=== PATIENT | male | born 1980 | race Caucasian/White ===

== ENCOUNTER 2023-04-07 19:15 | Emergency (ER) | payer MEDICARE, MEDICAID ==
[~2023-04-07] VITALS: Ht 175.3 cm; Wt 72.7 kg
[2023-04-08] MEDS ORDERED: ONDANSETRON HCL 4 MG/2 ML VIAL IM ONE (00:15)
[2023-04-08] MEDS ORDERED: MORPHINE SULFATE 4 MG/ML SYR/VIAL IM ONE (00:15)
[2023-04-08 00:39] VITALS: TEMP 98.1; O2SAT 99
[2023-04-08] MEDS ORDERED: ONDANSETRON ODT 4 MG TAB PO ONE (00:45)
[2023-04-08 01:09] VITALS: BP 128/78; PULSE 94; RESP 18
[2023-04-08] MEDS ORDERED: KETOROLAC TROMETH 30 MG/ML 1ML VIAL IM ONE (02:30)
== END 2023-04-08 03:57 | disposition home or self-care (01) ==
LOC: ER 19:15
DX: M25.511 Pain in right shoulder (principal); F17.210 Nicotine dependence, cigarettes, uncomplicated; W01.0XXA Fall on same level from slipping, tripping and stumbling without subsequent striking against object, initial encounter; Y93.89 Activity, other specified; Y92.89 Other specified places as the place of occurrence of the external cause; Y99.8 Other external cause status
CPT/HCPCS: 73030; 73060; 96372; 99284; J1885; J2270; Q0162

== ENCOUNTER 2023-12-07 15:51 | Inpatient (IN) | payer MEDICARE, MEDICAID ==
[~2023-12-07] VITALS: Ht 175.3 cm; Wt 85.4 kg
[2023-12-07 17:12] LABS: Eosinophils # (auto) 0.1 10 ^3/uL (0-0.8); Neutrophils # (auto) 6.2 10 ^3/uL (1.6-8.6); Nucleated Red Blood Cells % 0.1 %
[2023-12-07 17:14] LABS: Basophils # (auto) 0 10 ^3/uL (0-0.2); Basophils % (auto) 0.5 % (0.0-2.0); Eosinophils % (auto) 1.1 % (0.0-7.0); Hematocrit 32.9 % (41.0-53.0); Lymphocytes # (auto) 1.4 10 ^3/uL (0.4-5.4); Lymphocytes % (auto) 15.9 % (10.0-50.0); Mean Corpuscular Hemoglobin 20.7 pg (28.0-32.0); Mean Corpuscular Hgb Conc. 30.3 g/dL (32.0-36.0); Mean Corpuscular Volume 68.1 fL (80.0-100.0); Monocytes # (auto) 1.2 10 ^3/uL (0-1.3); Monocytes % (auto) 13.8 % (0.0-12.0); Neutrophils % (auto) 68.7 % (37.0-80.0); Platelet Count (auto) 407 10^3/uL (140-450); Red Blood Cells 4.84 10^6/uL (4.5-5.90)
[2023-12-07 17:20] LABS: Red Cell Distribution Width 20.9 % (11.8-14.3)
[2023-12-07 17:32] LABS: Alanine Aminotransferase 316 U/L (7-40); Albumin 3.9 g/dL (3.2-4.8); Alkaline Phosphatase 167 U/L (46-116); Anion Gap 6 (5-15); Aspartate Aminotransferase 244 U/L (13-40); BUN/Creatinine Ratio 14.4 (10.0-20.0); Bilirubin, Total 0.9 mg/dL (0.2-1.0); Blood Urea Nitrogen 17 mg/dL (9-23); Calcium 9.3 mg/dL (8.7-10.4); Carbon Dioxide 23 mmol/L (20-30); Chloride 108 mmol/L (98-107); Glucose 93 mg/dL (74-106); Potassium 4.4 mmol/L (3.5-5.1); Sodium 137 mmol/L (136-145); Total Protein 6.2 g/dL (5.7-8.2)
[2023-12-07] MEDS: ALBUTEROL SULF 2.5 MG/0.5ML(0.5%) NEB SOLN NEB ONE (18:45)
[2023-12-07] MEDS: ALBUTEROL SULF 2.5 MG/0.5ML(0.5%) NEB SOLN ONE (18:46)
[2023-12-07] MEDS: methylPREDNISolone SOD SUCC 125 MG/2 ML VL IV ONE (18:58)
[2023-12-07] MEDS: AZITHROMYCIN 250 MG TAB PO ONE (18:58)
[2023-12-07 19:00] VITALS: PULSE 101; RESP 22; O2SAT 93
[2023-12-07 19:14] VITALS: BP 139/84; PULSE 101; RESP 20; TEMP 97.6; O2SAT 98
[2023-12-07 19:30] VITALS: PULSE 110; RESP 20; O2SAT 98
[2023-12-07 20:23] LABS: Rapid Influenza A Negative (Negative); Rapid Influenza B Negative (Negative)
[2023-12-07 20:24] LABS: COVID19 ANTIGEN SOFIA FIA NEGATIVE (NEGATIVE)
[2023-12-07] MEDS ORDERED: FUROSEMIDE 40 MG/4 ML VIAL IV ONE (23:00)
[2023-12-07] MEDS ORDERED: NITROGLYCERIN 0.4 MG SL TAB SL PRN ×2 (23:00→23:15)
[2023-12-07] MEDS ORDERED: ONDANSETRON HCL 4 MG/2 ML VIAL IV PRN ×2 (23:00→23:15)
[2023-12-07] MEDS ORDERED: ACETAMINOPHEN 325 MG TAB PO PRN ×2 (23:00→23:15)
[2023-12-07] MEDS: FUROSEMIDE 40 MG/4 ML VIAL IV ONE (23:00)
[2023-12-07] MEDS ORDERED: MORPHINE SULFATE INJ 2 MG/ml SYRG IV PRN ×2 (23:00→23:15)
[2023-12-07 23:43] LABS: Triglycerides 81 mg/dL (< 150)
[2023-12-07 23:44] LABS: LDL Cholesterol 66 mg/dL (< 100)
[2023-12-07 23:45] LABS: Cholesterol 108 mg/dL (< 200); HDL Cholesterol 29 mg/dL (40-59)
[2023-12-08] VITALS (15 sets, daily range): BP systolic 116–126; BP diastolic 60–83; PULSE 50–112; RESP 17–23; TEMP 97.6–98.4; O2SAT 92–100
[2023-12-08] MEDS ORDERED: ACETAMINOPHEN 325 MG TAB PO PRN (01:30)
[2023-12-08] MEDS ORDERED: ONDANSETRON HCL 4 MG/2 ML VIAL IV PRN (01:30)
[2023-12-08] MEDS ORDERED: NITROGLYCERIN 0.4 MG SL TAB SL PRN (01:30)
[2023-12-08] MEDS ORDERED: MORPHINE SULFATE INJ 2 MG/ml SYRG IV PRN (01:30)
[2023-12-08 02:03] LABS: Amphetamine Screen, Urine Pos (NEGATIVE); Benzodiazephine Screen, Urine Neg (NEGATIVE)
[2023-12-08 02:04] LABS: Barbiturate Scree,Urine Neg (NEGATIVE); Cannabinoid Screen, Urine Pos (NEGATIVE); Cocaine Screen, Urine Neg (NEGATIVE); Opiate Scree,Urine Neg (NEGATIVE); Phencyclidine Screen, Urine Neg (NEGATIVE)
[2023-12-08 05:12] LABS: Calcium 9.4 mg/dL (8.7-10.4); Chloride 106 mmol/L (98-107); Potassium 4.9 mmol/L (3.5-5.1); Sodium 138 mmol/L (136-145)
[2023-12-08 05:13] LABS: Anion Gap 7 (5-15); Carbon Dioxide 25 mmol/L (20-30)
[2023-12-08 05:18] LABS: BUN/Creatinine Ratio 14.2 (10.0-20.0); Blood Urea Nitrogen 19 mg/dL (9-23); Glucose 173 mg/dL (74-106)
[2023-12-08] MEDS: FUROSEMIDE 20 MG/2 ML VIAL IV SCH (05:56)
[2023-12-08] MEDS ORDERED: FUROSEMIDE 20 MG/2 ML VIAL IV SCH (06:00)
[2023-12-08] MEDS: ALBUTEROL SULF 2.5 MG/0.5ML(0.5%) NEB SOLN NEB SCH ×2 (06:55→12:24)
[2023-12-08] MEDS: IPRATROPIUM BROM 0.5 MG/2.5ML INH SOL NEB SCH ×2 (06:55→12:24)
[2023-12-08] MEDS: IPRATROPIUM BROM 0.5 MG/2.5ML INH SOL ONE (06:56)
[2023-12-08] MEDS: ALBUTEROL SULF 2.5 MG/0.5ML(0.5%) NEB SOLN ONE (06:56)
[2023-12-08] MEDS ORDERED: ASPirin 81 mg TAB PO SCH (10:00)
[2023-12-08] MEDS: methylPREDNISolone SOD SUCC 40 MG/ML VL IV SCH (10:00)
[2023-12-08] MEDS: CARVEDILOL 3.125 MG TAB PO SCH (10:00)
[2023-12-08] MEDS ORDERED: CARVEDILOL 3.125 MG TAB PO SCH (10:00)
[2023-12-08] MEDS ORDERED: lamoTRIgine 25 MG TAB PO SCH (10:00)
[2023-12-08] MEDS ORDERED: QUET25TA37 PO (10:07)
[2023-12-08] MEDS: ASPirin 81 mg TAB PO SCH (10:41)
[2023-12-08] MEDS: AZITHROMYCIN 250 MG TAB PO SCH (10:42)
[2023-12-08] MEDS: lamoTRIgine 25 MG TAB PO SCH (10:42)
[2023-12-08] MEDS: AZITHROMYCIN 250 MG TAB PO ONE (10:42)
[2023-12-08] MEDS: methylPREDNISolone SOD SUCC 40 MG/ML VL IV ONE (10:51)
[2023-12-08] MEDS ORDERED: ATORVASTATIN 20 MG TAB PO SCH ×2 (22:00)
[2023-12-09] VITALS (13 sets, daily range): BP systolic 104–128; BP diastolic 58–104; PULSE 75–114; RESP 17–20; TEMP 97.3–98.6; O2SAT 95–99
[2023-12-09] MEDS: EMPAGLIFLOZIN 10 MG TAB PO SCH (09:30)
[2023-12-09] MEDS: SACUBITRIL-VALSARTAN 24mg/26mg TAB PO SCH (09:30)
[2023-12-10] VITALS (7 sets, daily range): BP systolic 98–118; BP diastolic 65–80; PULSE 73–95; RESP 16–20; TEMP 97.7–98.1; O2SAT 0–100
[2023-12-10 08:36] LABS: Hepatitis B Surface Antigen Negative (Negative)
[2023-12-10 08:57] LABS: Hepatitis A Ab IgM Negative; Hepatitis B Core IgM Negative
[2023-12-10 08:58] LABS: Hepatitis C Antibody Negative (Negative)
[2023-12-10] MEDS ORDERED: ALBUAER3 IN (10:29)
[2023-12-10] MEDS ORDERED: CARV-214 PO (10:29)
[2023-12-10] MEDS ORDERED: FURO1TAB31 PO (10:29)
[2023-12-10] MEDS ORDERED: SACU1TAB PO (10:29)
[2023-12-10] MEDS ORDERED: AZIT500T66 PO (10:29)
[2023-12-10] MEDS ORDERED: EMPA1TAB PO (10:29)
[2023-12-10] MEDS ORDERED: LAM100T PO (10:29)
[2023-12-10] MEDS ORDERED: METH4PAK PO (10:29)
== END 2023-12-10 11:40 | disposition home or self-care (01) | DRG 917 ==
LOC: ER 15:51 → TELE 22:57 → ER 23:00 → TELE 12-08 01:32 → TELE-WESTW 12-08 10:06
PROVIDERS: ADMIT Nurse Practitioner; ATTEND Family Medicine
DX: T43.621A Poisoning by amphetamines, accidental (unintentional), initial encounter (principal); I21.A1 Myocardial infarction type 2; I50.23 Acute on chronic systolic (congestive) heart failure; J18.9 Pneumonia, unspecified organism; J96.20 Acute and chronic respiratory failure, unspecified whether with hypoxia or hypercapnia; J44.1 Chronic obstructive pulmonary disease with (acute) exacerbation; N17.9 Acute kidney failure, unspecified; I42.0 Dilated cardiomyopathy; J44.0 Chronic obstructive pulmonary disease with (acute) lower respiratory infection; I42.7 Cardiomyopathy due to drug and external agent; F17.210 Nicotine dependence, cigarettes, uncomplicated; F31.9 Bipolar disorder, unspecified; I07.1 Rheumatic tricuspid insufficiency; F15.10 Other stimulant abuse, uncomplicated; R74.01 Elevation of levels of liver transaminase levels; T50.995A Adverse effect of other drugs, medicaments and biological substances, initial encounter; E03.9 Hypothyroidism, unspecified; Y92.89 Other specified places as the place of occurrence of the external cause
CPT/HCPCS: 36415; 71046; 80048; 80053; 80061; 80074; 80307; 83036; 83880; 84443; 84484; 85025; 85379; 87426; 87804; 93005; 93306; 94640; 96374; 96375; G0378

== ENCOUNTER 2024-02-13 12:21 | Inpatient (IN) | payer MEDICARE, MEDICAID ==
[~2024-02-13] VITALS: Ht 175.3 cm; Wt 88.0 kg
[~2024-02-13 12:21] MED LIST: ALBUAER3 IN; AZIT500T66 PO; CARV-214 PO; CLON0.5T4 PO; EMPA1TAB PO; FURO1TAB31 PO; LAM100T PO; METH4PAK PO; QUET200T30 PO; QUET25TA37 PO; QUET400T PO; SACU1TAB PO
[2024-02-13 13:00] LABS: Basophils # (auto) 0.1 10 ^3/uL (0-0.2); Basophils % (auto) 0.5 % (0.0-2.0); Eosinophils # (auto) 0.1 10 ^3/uL (0-0.8)
[2024-02-13 13:01] LABS: Eosinophils % (auto) 0.6 % (0.0-7.0); Hematocrit 34.3 % (41.0-53.0); Hemoglobin 10.6 g/dL (13.5-17.5); Lymphocytes % (auto) 8.6 % (10.0-50.0); Mean Corpuscular Hemoglobin 21.7 pg (28.0-32.0); Mean Corpuscular Hgb Conc. 30.7 g/dL (32.0-36.0); Mean Corpuscular Volume 70.7 fL (80.0-100.0); Monocytes # (auto) 1.1 10 ^3/uL (0-1.3); Monocytes % (auto) 8.9 % (0.0-12.0); Neutrophils # (auto) 9.8 10 ^3/uL (1.6-8.6); Neutrophils % (auto) 81.4 % (37.0-80.0); Nucleated Red Blood Cells % 0.1 %; Platelet Count (auto) 408 10^3/uL (140-450); Red Blood Cells 4.86 10^6/uL (4.5-5.90); Red Cell Distribution Width 23.1 % (11.8-14.3)
[2024-02-13] MEDS: AZITHROMYCIN 500MG/ 250ML 250 ML IV ONE (13:15)
[2024-02-13] MEDS: cefTRIAXone 1GM/50ML D5W 50 ML IV ONE (13:15)
[2024-02-13] MEDS: FUROSEMIDE 40 MG/4 ML VIAL IV ONE (13:15)
[2024-02-13 13:25] LABS: Alanine Aminotransferase 491 U/L (7-40); Albumin 4.3 g/dL (3.2-4.8); Alkaline Phosphatase 140 U/L (46-116); Anion Gap 8 (5-15); Aspartate Aminotransferase 136 U/L (13-40); BUN/Creatinine Ratio 18.5 (10.0-20.0); Bilirubin, Total 1.9 mg/dL (0.2-1.0); Blood Urea Nitrogen 20 mg/dL (9-23); Calcium 9.8 mg/dL (8.7-10.4); Carbon Dioxide 23 mmol/L (20-31); Chloride 106 mmol/L (98-107); Glucose 98 mg/dL (74-106); Potassium 5.5 mmol/L (3.5-5.1); Sodium 137 mmol/L (136-145); Total Protein 6.4 g/dL (5.7-8.2)
[2024-02-13 14:25] VITALS: PULSE 117; RESP 28; O2SAT 96
[2024-02-13] MEDS ORDERED: ONDANSETRON HCL 4 MG/2 ML VIAL IV PRN (14:30)
[2024-02-13] MEDS: ENOXAPARIN SOD 40 MG/0.4 ML SYRINGE SC SCH (14:30)
[2024-02-13] MEDS ORDERED: MORPHINE SULFATE INJ 2 MG/ml SYRG IV PRN (14:30)
[2024-02-13] MEDS ORDERED: DOCUSATE SOD 100 MG CAP PO PRN (14:30)
[2024-02-13] MEDS: SODIUM ZIRCONIUM CYCL 10 GM PAK PO ONE (14:30)
[2024-02-13] MEDS: ENOXAPARIN SOD 80 MG/0.8ML SYRINGE SC ONE (14:37)
[2024-02-13] MEDS: MAGNESIUM SULFATE 1GM/100ML 100 ML IV SCH (15:18)
[2024-02-13] MEDS: methylPREDNISolone SOD SUCC 125 MG/2 ML VL IV ONE (15:18)
[2024-02-13] MEDS: ALBUTEROL SULF 2.5 MG/0.5ML(0.5%) NEB SOLN ONE (15:24)
[2024-02-13] MEDS: LORazepam 2MG/ML-1ML VIAL IV ONE (15:24)
[2024-02-13] MEDS: SODIUM BICARB 8.4% 50Meq/50ml SYR INJ IV ONE (15:24)
[2024-02-13] MEDS: CALCIUM GLUC 1,000mg/50ml-NS 50 ML IV ONE (15:24)
[2024-02-13] MEDS: BUDESONIDE (INHALATION) 0.5 MG/2 ML NEB ONE (15:25)
[2024-02-13] MEDS: IPRATROPIUM BROM 0.5 MG/2.5ML INH SOL ONE (15:25)
[2024-02-13] MEDS: ALBUTEROL SULF 2.5 MG/0.5ML(0.5%) NEB SOLN NEB ONE (15:30)
[2024-02-13] MEDS ORDERED: ALBUTEROL SULF 2.5 MG/0.5ML(0.5%) NEB SOLN NEB ONE (15:30)
[2024-02-13] MEDS: BUDESONIDE (INHALATION) 0.5 MG/2 ML NEB NEB ONE (15:30)
[2024-02-13] MEDS: IPRATROPIUM BROM 0.5 MG/2.5ML INH SOL NEB ONE (15:30)
[2024-02-13 15:32] LABS: Base Excess -10.7 mmol/L (-2.0-3.0)
[2024-02-13] MEDS: FUROSEMIDE 20 MG/2 ML VIAL IV ONE (15:49)
[2024-02-13] MEDS: ETOMIDATE (2MG/ML) 20ML VIAL IV ONE (16:06)
[2024-02-13] MEDS: ROCURONIUM 10MG/ML 10ML VIAL IV ONE (16:06)
[2024-02-13] MEDS: MIDAZOLAM DRIP 50 mg/50mL 0 ML IV ONE (16:06)
[2024-02-13 17:20] LABS: Base Excess -4.8 mmol/L (-2.0-3.0)
[2024-02-13 17:32] LABS: INR 1.21 (0.9-1.15); Prothrombin Time 12.6 sec (9.3-11.8)
[2024-02-13] MEDS: FUROSEMIDE 40 MG/4 ML VIAL IV SCH (18:00)
[2024-02-13] MEDS ORDERED: NITROGLYCERIN 0.4 MG SL TAB SL PRN (19:00)
[2024-02-13 19:22] VITALS: PULSE 111; RESP 23; O2SAT 93
[2024-02-13] MEDS: methylPREDNISolone SOD SUCC 125 MG/2 ML VL IV SCH (21:55)
[2024-02-13] MEDS: SACUBITRIL-VALSARTAN 24mg/26mg TAB PO SCH (21:56)
[2024-02-13] MEDS: CARVEDILOL 3.125 MG TAB PO SCH (21:56)
[2024-02-13] MEDS: ENOXAPARIN SOD 100 MG/1 ML SYRINGE SC SCH (21:57)
[2024-02-13 22:57] VITALS: PULSE 112
[2024-02-14] VITALS (8 sets, daily range): BP systolic 107–133; BP diastolic 56–77; PULSE 51–104; RESP 18–21; TEMP 97.5–98.6; O2SAT 92–100
[2024-02-14] MEDS ORDERED: QUET200T45 PO (00:54)
[2024-02-14 05:46] LABS: Basophils # (auto) 0 10 ^3/uL (0-0.2); Eosinophils # (auto) 0 10 ^3/uL (0-0.8); Hemoglobin 11.2 g/dL (13.5-17.5); Monocytes # (auto) 0.2 10 ^3/uL (0-1.3); Monocytes % (auto) 2.1 % (0.0-12.0)
[2024-02-14 05:49] LABS: Hematocrit 36.6 % (41.0-53.0); Lymphocytes # (auto) 0.4 10 ^3/uL (0.4-5.4); Lymphocytes % (auto) 3.8 % (10.0-50.0); Mean Corpuscular Hemoglobin 21.5 pg (28.0-32.0); Mean Corpuscular Hgb Conc. 30.5 g/dL (32.0-36.0); Mean Corpuscular Volume 70.5 fL (80.0-100.0); Neutrophils # (auto) 10.2 10 ^3/uL (1.6-8.6); Neutrophils % (auto) 94.1 % (37.0-80.0); Platelet Count (auto) 363 10^3/uL (140-450); Red Cell Distribution Width 23.6 % (11.8-14.3); White Blood Cell 10.8 10^3/uL (4.4-10.8)
[2024-02-14 06:11] LABS: Alanine Aminotransferase 513 U/L (7-40); Albumin 4.3 g/dL (3.2-4.8); Alkaline Phosphatase 169 U/L (46-116); Anion Gap 10 (5-15); Aspartate Aminotransferase 204 U/L (13-40); BUN/Creatinine Ratio 20.2 (10.0-20.0); Bilirubin, Total 1.1 mg/dL (0.2-1.0); Blood Urea Nitrogen 24 mg/dL (9-23); Calcium 9.8 mg/dL (8.7-10.4); Carbon Dioxide 25 mmol/L (20-31); Chloride 104 mmol/L (98-107); Glucose 130 mg/dL (74-106); Potassium 4.3 mmol/L (3.5-5.1); Sodium 139 mmol/L (136-145); Total Protein 6.8 g/dL (5.7-8.2)
[2024-02-14] MEDS: QUEtiapine FUMARATE 25 MG TAB PO SCH (08:37)
[2024-02-14] MEDS: lamoTRIgine 100 MG TAB PO SCH (08:38)
[2024-02-14] MEDS: EMPAGLIFLOZIN 10 MG TAB PO SCH (08:40)
[2024-02-14] MEDS: cefTRIAXone 1GM/50ML D5W 50 ML IV SCH (08:48)
[2024-02-14] MEDS: methylPREDNISolone SOD SUCC 125 MG/2 ML VL IV SCH (09:00)
[2024-02-14] MEDS: AZITHROMYCIN 500MG/ 250ML 250 ML IV SCH (09:32)
[2024-02-14 14:31] LABS: Urine Bacteria None Seen /hpf (None Seen)
[2024-02-14 14:41] LABS: Urine Blood Negative /uL (Negative); Urine Clarity Clear (Clear); Urine Color Light-Yellow (Yellow); Urine Protein, UAD Negative (Negative); Urine Specific Gravity 1.028 (1.001-1.035); Urine Urobilinogen Normal (Negative); Urine WBC <1 /hpf (0 - 3); Urine pH 5.5 (5.0-9.0)
[2024-02-14 14:50] LABS: Amphetamine Screen, Urine Pos (NEGATIVE); Barbiturate Scree,Urine Neg (NEGATIVE); Benzodiazephine Screen, Urine Neg (NEGATIVE); Cannabinoid Screen, Urine Pos (NEGATIVE); Cocaine Screen, Urine Neg (NEGATIVE); Opiate Scree,Urine Neg (NEGATIVE); Phencyclidine Screen, Urine Neg (NEGATIVE)
[2024-02-14] MEDS: IOHEXOL 350 MG/ML 100ML IJ ONE (16:10)
[2024-02-14] MEDS ORDERED: IPRATROPIUM BROM 0.5 MG/2.5ML INH SOL NEB PRN (16:15)
[2024-02-14] MEDS ORDERED: ALBUTEROL SULF 2.5 MG/0.5ML(0.5%) NEB SOLN NEB PRN (16:15)
[2024-02-15] VITALS (8 sets, daily range): BP systolic 112–120; BP diastolic 60–78; PULSE 52–103; RESP 16–21; TEMP 97.5–98.6; O2SAT 95–99
[2024-02-15] MEDS: LORazepam 0.5 MG TAB PO PRN
[2024-02-15 07:20] LABS: Basophils # (auto) 0.1 10 ^3/uL (0-0.2); Eosinophils # (auto) 0 10 ^3/uL (0-0.8); Hematocrit 39.1 % (41.0-53.0); Hemoglobin 11.7 g/dL (13.5-17.5); Lymphocytes # (auto) 0.5 10 ^3/uL (0.4-5.4)
[2024-02-15 07:22] LABS: Basophils % (auto) 0.3 % (0.0-2.0); Lymphocytes % (auto) 2.1 % (10.0-50.0); Mean Corpuscular Hemoglobin 21.3 pg (28.0-32.0); Mean Corpuscular Hgb Conc. 29.9 g/dL (32.0-36.0); Mean Corpuscular Volume 71.1 fL (80.0-100.0); Monocytes # (auto) 0.9 10 ^3/uL (0-1.3); Monocytes % (auto) 3.7 % (0.0-12.0); Neutrophils # (auto) 23.4 10 ^3/uL (1.6-8.6); Neutrophils % (auto) 93.9 % (37.0-80.0); Platelet Count (auto) 456 10^3/uL (140-450); Red Cell Distribution Width 23.9 % (11.8-14.3)
[2024-02-15 07:30] LABS: Chloride 105 mmol/L (98-107); Potassium 5.4 mmol/L (3.5-5.1); Sodium 139 mmol/L (136-145)
[2024-02-15 07:31] LABS: Anion Gap 5 (5-15); Calcium 9.6 mg/dL (8.7-10.4); Carbon Dioxide 29 mmol/L (20-31)
[2024-02-15 07:36] LABS: BUN/Creatinine Ratio 19.5 (10.0-20.0); Blood Urea Nitrogen 26 mg/dL (9-23); Glucose 127 mg/dL (74-106)
[2024-02-15 07:37] LABS: Magnesium 2.6 mg/dL (1.6-2.6)
[2024-02-15] MEDS: NICOTINE 14 MG/24HR TOPICAL PATCH TD SCH (10:50)
[2024-02-15 11:02] LABS: Free T3 1.97 pg/mL (2.3-4.2)
[2024-02-15 11:03] LABS: Free T4 (Free Thyroxine) 0.81 ng/dL (0.89-1.76)
[2024-02-15] MEDS ORDERED: FURO40TA4 PO (13:56)
[2024-02-15] MEDS ORDERED: PRED20TA2 PO (13:56)
[2024-02-15] MEDS ORDERED: LEVO750T40 PO (13:56)
[2024-02-15] MEDS ORDERED: EMPA1TAB PO (13:56)
[2024-02-15] MEDS ORDERED: CARV-214 OR (13:56)
[2024-02-15] MEDS ORDERED: SACU1TAB PO (13:56)
[2024-02-15] MEDS ORDERED: LEVO112T4 PO (14:01)
[2024-02-15] MEDS ORDERED: POTA-36 PO (14:06)
== END 2024-02-15 16:57 | disposition home or self-care (01) | DRG 280 ==
LOC: ER 12:21 → TELE 19:00 → TELE-EAST 19:01
PROVIDERS: ADMIT Internal Medicine Geriatric Medicine; ATTEND Internal Medicine Geriatric Medicine
DX: I50.43 Acute on chronic combined systolic (congestive) and diastolic (congestive) heart failure (principal); J96.21 Acute and chronic respiratory failure with hypoxia; I21.A1 Myocardial infarction type 2; J44.1 Chronic obstructive pulmonary disease with (acute) exacerbation; E87.21 Acute metabolic acidosis; I42.0 Dilated cardiomyopathy; D64.9 Anemia, unspecified; D72.829 Elevated white blood cell count, unspecified; E03.9 Hypothyroidism, unspecified; E87.5 Hyperkalemia; F31.9 Bipolar disorder, unspecified; I07.1 Rheumatic tricuspid insufficiency; R74.01 Elevation of levels of liver transaminase levels; F17.210 Nicotine dependence, cigarettes, uncomplicated; J98.4 Other disorders of lung; F41.9 Anxiety disorder, unspecified; F15.90 Other stimulant use, unspecified, uncomplicated; Z82.49 Family history of ischemic heart disease and other diseases of the circulatory system; Z91.148 Patient's other noncompliance with medication regimen for other reason
CPT/HCPCS: 36415; 36600; 71045; 71275; 76705; 80048; 80053; 80307; 81001; 82805; 83735; 83880; 84439; 84443; 84481; 84484; 85025; 85379; 85610; 93005; 94640; 96361; 96365; 96367; 96368; 96372; 96375; 99291; G0378; J2405

== ENCOUNTER 2024-04-26 01:09 | Inpatient (IN) | payer MEDICARE, MEDICAID ==
[~2024-04-26] VITALS: Ht 175.3 cm; Wt 88.8 kg
[~2024-04-26 01:09] MED LIST changes: -AZIT500T66 PO; +CARV-214 OR; -CARV-214 PO; +CARV3.1240 PO; -FURO1TAB31 PO; +FURO40TA4 PO; +LEVO112T4 PO; +LEVO750T40 PO; -METH4PAK PO; +POTA-36 PO; +PRED20TA2 PO; -QUET25TA37 PO
--- NOTE | 2024-04-26 01:37 | ECG ---
[facility] Test Date: 2024-04-26 Test Time: 01:23:10 Pat Name: YOLY CRUZ Department: ER Room: Gender: M School Counsellor: MARIE : 1980 Requested By: ELIEL DUARTE Order Number: [id number] Reading MD: Measurements Intervals [place] Rate: 114 P: 84 TX: 140 QRS: -76 QRSD: 134 T: 96 QT: 354 QTc: 488 Interpretive Statements Sinus tachycardia Ventricular premature complex Right atrial enlargement IVCD, consider atypical RBBB Consider anterior infarct Abnormal T, consider ischemia, lateral leads ST elevation, consider inferior injury Please click the below link to view image of tracing.
[2024-04-26 01:52] LABS: Basophils # (auto) 0 10 ^3/uL (0-0.2); Eosinophils # (auto) 0 10 ^3/uL (0-0.8); Nucleated Red Blood Cells % 0.1 %; White Blood Cell 8.2 10^3/uL (4.4-10.8)
[2024-04-26 01:54] LABS: Basophils % (auto) 0.4 % (0.0-2.0); Eosinophils % (auto) 0.6 % (0.0-7.0); Hematocrit 35.4 % (41.0-53.0); Lymphocytes # (auto) 1.3 10 ^3/uL (0.4-5.4); Mean Corpuscular Hemoglobin 23.3 pg (28.0-32.0); Mean Corpuscular Hgb Conc. 31.1 g/dL (32.0-36.0); Monocytes # (auto) 0.9 10 ^3/uL (0-1.3); Monocytes % (auto) 11.4 % (0.0-12.0); Neutrophils # (auto) 5.9 10 ^3/uL (1.6-8.6); Neutrophils % (auto) 71.6 % (37.0-80.0); Platelet Count (auto) 428 10^3/uL (140-450); Red Blood Cells 4.71 10^6/uL (4.5-5.90)
[2024-04-26 01:55] LABS: Red Cell Distribution Width 24.9 % (11.8-14.3)
--- NOTE | 2024-04-26 01:55 | ED.PDOC ---
SOB-HPI HPI Comments 44y M who presents to the ED for chief compliant of shortness of breath. Pt states he has history of CHF and states he has been out of his heart failure medications for the past 2-3 weeks and has been having increasing shortness breath since. Pt states he was hospitalized with CHF exacerbation at 2 weeks prior and told to follow up with cardiology but states he was not prescribed medications. Pt states due to stressors including going through divorce, he has not been able to follow up with providers and get new prescriptions of his medications. Pt now in the ED, noted to have increased work of breathing but has noted stable vitals with 02 sat of 100% on room air and BP of 136/100 in the ED. Pt otherwise states he is having chest pain, cough, nasal congestion and chills. Chief Complaint: Shortness of Breath Time Seen by MD: 01:53 Primary Care Provider: ? Reviewed notes: Nurses Notes Information Source: Patient Mode of Arrival: Wheelchair Brought in by: self Past Medical History PAST MEDICAL HISTORY: CHF, COPD Surgical History: Denies all surgeries Family History Family History: Reviewed,noncontributory to illness, Unknown Social History Smoker: Cigarettes, Other Alcohol: Denies ETOH Use Drugs: Marijuana, Methamphetamine Lives In: Home Constitutional: reports: chills; denies: diaphoresis, fatigue, fever, malaise, sweats, weakness, others EENTM: reports: nose congestion; denies: blurred vision, double vision, ear bleeding, ear discharge, ear drainage, ear pain, ear ringing, eye pain, eye redness, hearing loss, mouth pain, mouth swelling, nasal discharge, nose bleeding, nose pain, photophobia, tearing, throat pain, throat swelling, voice changes, others Respiratory: reports: cough, shortness of breath; denies: hemoptysis, o rthopnea, SOB at rest, SOB with excertion, stridor, wheezing, others Cardiovascular: reports: chest pain; denies: dizzy spells, diaphoresis, Dyspnea on exertion, edema, irregular heart beat, left arm pain, lightheadedness, palpitations, PND, syncope, others Gastrointestinal: denies: abdomen distended, abdominal pain, blood streaked bowels, constipated, diarrhea, dysphagia, difficulty swallowing, hematemesis, melena, nausea, poor appetite, poor fluid intake, rectal bleeding, rectal pain, vomiting, others Genitourinary: denies: burning, dysuria, flank pain, frequency, hematuria, incontinence, penile discharge, penile sore, pain, testicle pain, testicle swelling, urgency, others Neurological: denies: dizziness, fainting, headache, left sided numbness, left sided weakness, numbness, paresthesia, pre-existing deficit, right sided numbness, right sided weakness, seizure, speech problems, tingling, tremors, w eakness, others Musculoskeletal: denies: back pain, gout, joint pain, joint swelling, muscle pain, muscle stiffness, neck pain, others Integumetry: denies: bruises, change in color, change in hair/nails, dryness, laceration, lesions, lumps, rash, wounds, others Allergic/Immunocompromised: denies: Difficulty Healing, Frequent Infections, Hives, Itching, others Hematologic/Lymphatic: denies: anemia, blood clots, easy bleeding, easy bruising, swollen glands, others Endocrine: denies: excessive hunger, excessive sweating, excessive thirst, excessive urination, flushing, intolerance to cold, intolerance to heat, unexplained weight gain, unexplained weight loss, others Psychiatric: denies: anxiety, bipolar disorder, depression, hopeless, panic disorder, schizophrenia, sleepless, suicidal, others All Other Systems: Reviewed and Negative Physical Exam General Appearance: Moderate Distress, Normal HEENT: Normal ENT Inspection, Pharynx Normal, TMs Normal Neck: Full Range of Motion, Non-Tender, Normal, Normal Inspection Respiratory: Chest Non-Tender, No Accessory Muscle Use, Other (Tachypneic) Cardiovascular: No Edema, No JVD, No Murmur, No Gallop, Normal Peripheral Pulses, Regular Rate/Rhythm Breast Exam: Deferred Gastrointestinal: No Organomegaly, Non Tender, No Pulsatile Mass, Normal Bowel Sounds, Soft Genitalia: Deferred Pelvic: Deferred Rectal: Deferred Extremities: No calf tenderness, Normal capillary refill, Normal inspection, Normal range of motion, Non-tender, No pedal edema Musculoskeletal : Apperance: Normal Neurologic: Alert, stitcher feeder II-XII nml as Tested, No Motor Deficits, Normal Affect, Normal Mood, No Sensory Deficits Cerebellar Function: Normal Reflexes: Normal Skin: Dry, Normal Color, Warm Lymphatic: No Adenopathy Was a procedure done? Was a procedure done?: No Differential Dx Differential Diagnosis: CHF, COPD, Pneumonia, Pulmonary Embolism, Respiratory Distress, Pharyngitis, URI Comments COVID, X-Ray, Labs, Meds, VS Vital Signs Date Time Temp Pulse Resp B/P (MAP) Pulse Ox O2 Delivery O2 Flow Rate FiO2 04/26/24 01:23 114 04/26/24 01:15 97.6 118 24 136/100 (112) 100 Lab Test 04/26/24 01:41 Range/Units White Blood Count 8.2 4.4-10.8 10^3/uL Red Blood Count 4.71 4.5-5.90 10^6/uL Hemoglobin 11.0 L 13.5-17.5 g/dL Hematocrit 35.4 L 41.0-53.0 % Mean Corpuscular Volume 75.0 L 80.0-100.0 fL Mean Corpuscular Hemoglobin 23.3 L 28.0-32.0 pg Mean Corpuscular Hemoglobin Concent 31.1 L 32.0-36.0 g/dL Red Cell Distribution Width 24.9 H 11.8-14.3 % Platelet Count 428 140-450 10^3/uL Mean Platelet Volume 7.5 6.9-10.8 fL Neutrophils (%) (Auto) 71.6 37.0-80.0 % Lymphocytes (%) (Auto) 16.0 10.0-50.0 % Monocytes (%) (Auto) 11.4 0.0-12.0 % Eosinophils (%) (Auto) 0.6 0.0-7.0 % Basophils (%) (Auto) 0.4 0.0-2.0 % Neutrophils # (Auto) 5.9 1.6-8.6 10 ^3/uL Lymphocytes # (Auto) 1.3 0.4-5.4 10 ^3/uL Monocytes # (Auto) 0.9 0-1.3 10 ^3/uL Eosinophils # (Auto) 0 0-0.8 10 ^3/uL Basophils # (Auto) 0 0-0.2 10 ^3/uL Nucleated Red Blood Cells 0.1 % Platelet Estimate Adequate Hypochromasia (manual) Moderate Poikilocytosis (manual) Slight Anisocytosis (manual) Moderate Microcytosis Slight Target Cells Few Ovalocytes Few Schistocytes Few Sodium Level Pending Potassium Level Pending Chloride Level Pending Carbon Dioxide Level Pending Anion Gap Pending Blood Urea Nitrogen Pending Creatinine Pending Glomerular Filtration Rate Calc Pending BUN/Creatinine Ratio Pending Serum Glucose Pending Calcium Level Pending Total Bilirubin Pending Aspartate Amino Transferase (AST) Pending Alanine Aminotransferase (ALT) Pending Alkaline Phosphatase Pending Troponin I High Sensitivity 68 *H </=54 ng/L Total Protein Pending Albumin Pending X-Ray, Labs, Meds, VS Comment Patient will be admitted for CHF exacerbation and elevated troponins Patient will be given Lasix 40 mg Come in cardiology consult in the morning. Time of 1ST Reevaluation: 12:30 Reevaluation 1ST: Unchanged Patient Education/Counseling: Diagnosis, Treatment Family Education/Counseling: No Family Present Departure 1 Departure Time of Disposition: 03:00 Impression: Primary Impression: CHF (congestive heart failure) Qualified Codes: I50.21 - Acute systolic (congestive) heart failure Additional Impressions: Chest pain Qualified Codes: R07.89 - Other chest pain Elevated troponin Disposition: ADMITTED INPATIENT Condition: Fair Discharged With: Self Critical Care Note Critical Care Time?: No Stability Stability form required: No Heart Score Heart Score: Heart Score Response (Comments) Value History Moderate Suspicious 1 EKG Normal 0 Age <45 0 Risk Factors 1 or 2 risk factors 1 Troponin 1-2 x's Normal limit 1 Total 3 I personally scribed for ELIEL DUARTE ([facility]) on 04/26/24 at 01:55. Electronically submitted by Princess Borrego ([place]). ELIEL DUARTE Apr 26, 2024 01:55
[2024-04-26 02:32] LABS: Anisocytosis Moderate; Hypochromia Moderate; Ovalocytes FEW; Platelet Estimate Adequate; Target Cell FEW
[2024-04-26 03:13] LABS: Anion Gap 9 (5-15); BUN/Creatinine Ratio 11.4 (10.0-20.0); Calcium 9.9 mg/dL (8.7-10.4); Carbon Dioxide 23 mmol/L (20-31); Potassium 4.8 mmol/L (3.5-5.1); Sodium 140 mmol/L (136-145)
[2024-04-26 03:24] LABS: Alanine Aminotransferase 135 U/L (7-40); Albumin 4.1 g/dL (3.2-4.8); Alkaline Phosphatase 107 U/L (46-116); Aspartate Aminotransferase 64 U/L (13-40); Blood Urea Nitrogen 15 mg/dL (9-23); Chloride 108 mmol/L (98-107); Glucose 95 mg/dL (74-106); Total Protein 6.4 g/dL (5.7-8.2)
[2024-04-26 04:13] LABS: Urine Bacteria FEW /hpf (None Seen); Urine Blood Negative /uL (Negative); Urine Clarity Clear (Clear); Urine Color Yellow (Yellow); Urine Mucus FEW (None Seen); Urine Protein, UAD 1+ (Negative); Urine Specific Gravity 1.022 (1.001-1.035); Urine Sperm PRESENT /hpf (None Seen); Urine Squamous Epithelial Cell None Seen /hpf (<5); Urine Urobilinogen Normal (Negative); Urine WBC 5 /hpf (0 - 3); Urine pH 5.5 (5.0-9.0)
[2024-04-26] MEDS ORDERED: TEMAZEPAM 15 MG CAP PO PRN (05:15)
[2024-04-26] MEDS ORDERED: ONDANSETRON HCL 4 MG/2 ML VIAL IV PRN (05:15)
[2024-04-26] MEDS ORDERED: ALBUTEROL SULF 2.5 MG/0.5ML(0.5%) NEB SOLN NEB PRN (05:15)
--- NOTE | 2024-04-26 05:18 | DVHHP2 ---
History of Present Illness Reason for Visit: Shortness for breath History of Present Illness 44-year-old male presents for evaluation of shortness for breath. Patient presents with a history of congestive heart failure and COPD. He reports a two week history of worsening shortness for breath with associated chest tightness and lower extremity swelling. Denies cough or fever. No other acute complaints reported. Past Medical History COPD and congestive heart failure Past Surgical History Denies Family History Noncontributory Smoke: <1 pack per day ALCOHOL: none Drugs: Marijuana, Other (Methamphetamine) Review of Systems Review of Systems Review of systems are currently negative otherwise addressed HPI. Allergies: Coded Allergies: NO KNOWN ALLERGIES (Unverified , 01/11/11) Exam Vital Signs Vital Signs Date Time Temp Pulse Resp B/P (MAP) Pulse Ox O2 Delivery O2 Flow Rate FiO2 04/26/24 01:23 114 04/26/24 01:15 97.6 24 136/100 (112) 100 Exam Gen: 44-year-old male in mild distress Skin: Warm, dry, normal color and texture, no rash. HEENT: Normocephalic atraumatic, mucous membranes moist and pink. Neck: Cervical and supraclavicular nodes normal without enlargement, trachea is midline, thyroid gland is normal without masses. Pulmonary: Clear to auscultation and percussion bilaterally. Cardiac: Regular rate and rhythm. No murmur Abdomen: Soft, nontender, nondistended, bowel sounds present all 4 quadrants, no guarding, no rigidity, no organomegaly. Extremities: No cyanosis, clubbing, bilateral lower extremity edema Neuro: Cranial nerves II through XII grossly intact, normal affect and speech, no focal motor deficits. Labs/Xrays ORDERING PHYSICIAN: GAURI AHMADI PROCEDURE(s): ECIDC - ECHO 2D MODE CARDIAC DOP REASON: evaluate cardiac function ORDER NUMBER(s): [id number], ACCESSION NUMBER(s): [id number] APPROVED REPORT EXAM: Two-dimensional and M-mode echocardiogram with Doppler and color Doppler. Blood Pressure: 127/77 mmHg INDICATION EVALUATE CARDIAC FUNCTION RISK FACTORS Height: 5'9", Weight: 200 DIMENSIONS LVDd 6.5 (3.8-5.7cm) LA (2D) 4.6 (1.9-4.0cm) Aortic Root 3.3 (2.0- 3.7cm) LVDs 5.9 (2.5-4.0cm) LA (MM) (1.9-4.0cm) Aortic Cusp Exc 2.0 (1.5- 2.0cm) EF (%) 19.0 (55-70%) Rt. Atrium 3.9 (1.9-4.0cm) Asc. Aorta 3.4 cm IVSd 0.8 (0.7-1.1cm) RV (D) 4.4 (1.8-2.4cm) PWd 1.0 (0.7-1.1cm) Mitral Valve Mitral Mitral Stenosis E/A ratio 0.0 2D MVA cm2 Aortic Valve Aortic Valve Aortic Stenosis V1 0.62m/s AO Mean GR. 2mmHg V2 0.87m/s AO Peak GR. 3mmHg LVOT Diameter 2.3 (1.8-2.4cm) Doppler DARA 2.96cm2 AI P 1/2 Time 256.79ms Pulmonic Valve V2 0.55m/s Tricuspid Valve TR Velocity 2.46m/s RVSP 33mmHg LEFT VENTRICLE The left ventricle is severely dilated in size. Wall thickness is normal. Ejection fraction is severely decreased and is estimated at 15-20%. There is severe global hypokinesis and dyskinesis of the septum. Diastolic function is indeterminate. RIGHT VENTRICLE The right ventricle is dilated in size. Right ventricular systolic function is moderately decreased. ATRIA The left atrium is moderately to severely dilated in size. The right atrium is of normal size. MITRAL VALVE There is some tethering of the leaflets. No significant mitral regurgitation. PULMONIC VALVE Likely normal. TRICUSPID VALVE Normal structure and function. There is mild tricuspid regurgitation. PA systolic pressure is estimated at 30-35 mm Hg. AORTIC VALVE Normal in structure and function. There is mild insufficiency. GREAT VESSELS The aortic root is of normal size. PERICARDIAL EFFUSION No pericardial effusion. IVC is of normal size. Conclusion Severely dilated left ventricle with severely decreased systolic function. Ejection fraction is estimated at 15-20%. Dilated right ventricle with moderately decreased systolic function. Moderately to severely dilated left atrial chamber size. No hemodynamically significant valvular disease. No significant pericardial effusion. ORDERING PHYSICIAN: ELIEL DUARTE PROCEDURE(s): CXRP - CHEST PORTABLE REASON: cp ORDER NUMBER(s): [id number], ACCESSION NUMBER(s): [id number] CHEST RADIOGRAPH Indication: cp Technique: Single frontal view of the chest was obtained Comparison: XY CHEST PORTABLE on DOS: 02/13/24 FINDINGS: Lines and Tubes: None Lungs: Bilateral interstitial prominence. No focal consolidation. Pleura: No effusion. No pneumothorax. Cardiomediastinal contours: Unremarkable Bones: No acute osseous abnormality. IMPRESSION: 1. Bilateral interstitial prominence which may reflect congestion. No focal pulmonary consolidation. Labs Test 04/26/24 04:14 04/26/24 03:00 04/26/24 01:41 Range/Units Troponin I High Sensitivity 71 *H </=54 ng/L Urine Color Yellow Yellow Urine Clarity Clear Clear Urine pH 5.5 5.0-9.0 Urine Specific [place] 1.022 1.001-1.035 Urine Protein 1+ H Negative Urine Ketones Negative Negative Urine Blood Negative Negative /uL Urine Nitrite Negative Negative Urine Bilirubin Negative Negative Urine Urobilinogen Normal Negative mg/dL Urine Leukocyte Esterase Negative Negative /uL Urine RBC 2 0 - 3 /hpf Urine WBC 5 0 - 3 /hpf Urine Squamous Epithelial Cells None seen <5 /hpf Urine Bacteria Few H None Seen /hpf Urine Mucus Few None Seen Urine Sperm Present None Seen /hpf Urine Glucose 4+ H Normal mg/dL White Blood Count 8.2 4.4-10.8 10^3/uL Red Blood Count 4.71 4.5-5.90 10^6/uL Hemoglobin 11.0 L 13.5-17.5 g/dL Hematocrit 35.4 L 41.0-53.0 % Mean Corpuscular Volume 75.0 L 80.0-100.0 fL Mean Corpuscular Hemoglobin 23.3 L 28.0-32.0 pg Mean Corpuscular Hemoglobin Concent 31.1 L 32.0-36.0 g/dL Red Cell Distribution Width 24.9 H 11.8-14.3 % Platelet Count 428 140-450 10^3/uL Mean Platelet Volume 7.5 6.9-10.8 fL Neutrophils (%) (Auto) 71.6 37.0-80.0 % Lymphocytes (%) (Auto) 16.0 10.0-50.0 % Monocytes (%) (Auto) 11.4 0.0-12.0 % Eosinophils (%) (Auto) 0.6 0.0-7.0 % Basophils (%) (Auto) 0.4 0.0-2.0 % Neutrophils # (Auto) 5.9 1.6-8.6 10 ^3/uL Lymphocytes # (Auto) 1.3 0.4-5.4 10 ^3/uL Monocytes # (Auto) 0.9 0-1.3 10 ^3/uL Eosinophils # (Auto) 0 0-0.8 10 ^3/uL Basophils # (Auto) 0 0-0.2 10 ^3/uL Nucleated Red Blood Cells 0.1 % Platelet Estimate Adequate Hypochromasia (manual) Moderate Poikilocytosis (manual) Slight Anisocytosis (manual) Moderate Microcytosis Slight Target Cells Few Ovalocytes Few Schistocytes Few Sodium Level 140 136-145 mmol/L Potassium Level 4.8 3.5-5.1 mmol/L Chloride Level 108 H 98-107 mmol/L Carbon Dioxide Level 23 20-31 mmol/L Anion Gap 9 5-15 Blood Urea Nitrogen 15 9-23 mg/dL Creatinine 1.32 H 0.700-1.30 mg/dL Glomerular Filtration Rate Calc 69 >90 mL/min BUN/Creatinine Ratio 11.4 10.0-20.0 Serum Glucose 95 74-106 mg/dL Calcium Level 9.9 8.7-10.4 mg/dL Total Bilirubin 1.0 0.2-1.0 mg/dL Aspartate Amino Transferase (AST) 64 H 13-40 U/L Alanine Aminotransferase (ALT) 135 H 7-40 U/L Alkaline Phosphatase 107 46-116 U/L B-Type Natriuretic Peptide 2875.81 0-100 pg/mL Total Protein 6.4 5.7-8.2 g/dL Albumin 4.1 3.2-4.8 g/dL Assessment/Plan Assessment/Plan Assessment On chronic congestive heart failure COPD Hypertension Plan Admit the patient to Med surge to the hospitalist LENCHO Romero Resume home medications Continue treatment per orders. Plan discussed with: Patient My Orders Orders - SWATI ORTIZ AGACNP Procedure Category Date Status Time Furosemide Injection PHA 04/26/24 Verified (Lasix Injection) 18:00 Furosemide Injection PHA 04/26/24 Verified (Lasix Injection) 05:15 Albuterol Medneb PHA 04/26/24 Verified (Ventolin Medneb) 05:15 Aspirin Tablet PHA 04/26/24 Verified 10:00 Levothyroxine Tablet PHA 04/26/24 Verified (Synthroid Tablet) 06:00 Empagliflozin PHA 04/26/24 Verified (Jardiance) 10:00 Sacubitril-Valsartan PHA 04/26/24 Verified (Entresto 24-26 Mg 10:00 Carvedilol Tablet PHA 04/26/24 Verified (Coreg Tablet) 10:00 Basic Metabolic Panel LAB 04/27/24 Verified 04:00 Atorvastatin (Lipitor) PHA 04/26/24 Verified 22:00 Admit ADMIT 04/26/24 Verified 05:12 Temazepam (Restoril) PHA 04/26/24 Verified 05:15 Ondansetron Hcl PHA 04/26/24 Verified (Zofran) 05:15 Cardiac DIET 04/26/24 Verified Diet-2gna,Lofat,Lochol Breakfast Condition: Stable [place] 04/26/24 Verified 05:12 Acetaminophen Tablet PHA 04/26/24 Verified (Tylenol Tablet) 05:15 Bedrest With Bathroom [place]APITO 04/26/24 Verified Privileg 05:12 Date of Service: Apr 26, 2024 Billing Provider: SWATI ORTIZ Common Visit Codes: [id number] INP/OBS CARE (HIGH) SWATI ORTIZ Apr 26, 2024 05:18
[2024-04-26] MEDS: FUROSEMIDE 40 MG/4 ML VIAL IV ONE (06:09)
[2024-04-26] MEDS: LEVOTHYROXINE SODIUM 112 MCG TAB PO SCH (06:17)
[2024-04-26 06:23] VITALS: PULSE 110; RESP 19; O2SAT 94
--- NOTE | 2024-04-26 06:32 | DVH ---
CHEST RADIOGRAPH Indication: cp Technique: Single frontal view of the chest was obtained Comparison: XY CHEST PORTABLE on DOS: 02/13/24 FINDINGS: Lines and Tubes: None Lungs: Bilateral interstitial prominence. No focal consolidation. Pleura: No effusion. No pneumothorax. Cardiomediastinal contours: Unremarkable Bones: No acute osseous abnormality. IMPRESSION: 1. Bilateral interstitial prominence which may reflect congestion. No focal pulmonary consolidation.
[2024-04-26] MEDS: SACUBITRIL-VALSARTAN 24mg/26mg TAB PO SCH (10:24)
[2024-04-26] MEDS: ASPirin 81 mg TAB PO SCH (10:24)
[2024-04-26] MEDS: EMPAGLIFLOZIN 10 MG TAB PO SCH (10:25)
[2024-04-26] MEDS: CARVEDILOL 3.125 MG TAB PO SCH (10:25)
[2024-04-26 11:14] VITALS: PULSE 100; RESP 18; O2SAT 99
[2024-04-26 12:08] VITALS: RESP 19; O2SAT 98
--- NOTE | 2024-04-26 13:17 | DVHPN2 ---
Reviewed: Care Plan, H&P, Labs, Medications, Previous Orders, Radiology Changes from previous H/P or p: No Changes Objective Vitals Vital Signs Date Time Temp Pulse Resp B/P (MAP) Pulse Ox O2 Delivery O2 Flow Rate FiO2 04/26/24 11:14 100 18 99 21 04/26/24 11:14 Room Air 04/26/24 11:14 0 04/26/24 10:25 140/91 04/26/24 07:39 97.9 97.9 Medications Current Medications Medications Dose Ordered Sig/Kristin Route Start Time Stop Time Status Last Admin Dose Admin Furosemide 20 mg BIDD IV 04/26/24 18:00 Albuterol 2.5 mg Q6HPRN PRN NEB 04/26/24 05:15 Aspirin 81 mg DAILY PO 04/26/24 10:00 04/26/24 10:24 81 MG Levothyroxine Sodium 112 mcg QAM@0600 PO 04/26/24 06:00 04/26/24 06:17 112 MCG Empaglifozin 10 mg DAILY PO 04/26/24 10:00 04/26/24 10:25 10 MG Sacubitril/ Valsartan 1 tab BID PO 04/26/24 10:00 04/26/24 10:24 1 TAB Carvedilol 3.125 mg Q12HR PO 04/26/24 10:00 04/26/24 10:25 3.125 MG Atorvastatin Calcium 10 mg HS PO 04/26/24 22:00 Temazepam 15 mg QHSP PRN PO 04/26/24 05:15 Ondansetron HCl 4 mg Q4HP PRN IV 04/26/24 05:15 Acetaminophen 650 mg Q6HP PRN PO 04/26/24 05:15 Laboratory Results Laboratory Tests 04/26/24 01:41 Chemistry Test 04/26/24 01:41 Albumin 4.1 g/dL (3.2-4.8) Calcium Level 9.9 mg/dL (8.7-10.4) Total Protein 6.4 g/dL (5.7-8.2) Cardiac Markers Test 04/26/24 01:41 B-Type Natriuretic Peptide 2875.81 pg/mL (0-100) LFT Test 04/26/24 01:41 Alanine Aminotransferase (ALT) 135 U/L (7-40) H Alkaline Phosphatase 107 U/L (46-116) Aspartate Amino Transferase (AST) 64 U/L (13-40) H Total Bilirubin 1.0 mg/dL (0.2-1.0) Urinalysis Test 04/26/24 03:00 Urine Color Yellow (Yellow) Urine Clarity Clear (Clear) Urine pH 5.5 (5.0-9.0) Urine Specific [place] 1.022 (1.001-1.035) Urine Protein 1+ (Negative) H Urine Ketones Negative (Negative) Urine Blood Negative /uL (Negative) Urine Nitrite Negative (Negative) Urine Bilirubin Negative (Negative) Urine Urobilinogen Normal mg/dL (Negative) Urine Leukocyte Esterase Negative /uL (Negative) Urine RBC 2 /hpf (0 - 3) Urine WBC 5 /hpf (0 - 3) Urine Squamous Epithelial Cells None seen /hpf (<5) Urine Bacteria Few /hpf (None Seen) H Urine Mucus Few (None Seen) Urine Sperm Present /hpf (None Seen) Urine Glucose 4+ mg/dL (Normal) H Labs and/or images reviewed: Labs reviewed by me, Image(s) reviewed by me Assessment/Plan Assessment/Plan Acute hypoxic respiratory failure in the setting of CHF and COPD exacerbation: Oxygen by nasal cannula Acute on chronic systolic heart failure (HFrEF 20%) BNP 2800: Lasix 40 mg IV b.i.d. Coreg, consult for Dr. Amaya NSTEMI likely type 2 due to above Acute COPD exacerbation Acute transaminitis Hypothyroidism Bipolar disorder Anxiety disorder Chronic Current smoker: Counseled Non Compliance: Patient has not been taking CHF medications for last 2-3 wks Time spent 65 minutes Patient is full code Advanced care planning time 20 minutes Plan discussed with: Patient Date of Service: Apr 26, 2024 Billing Provider: DERIAN LANDIN MD Common Visit Codes: [id number] CARE 30-74 MIN DERIAN LANDIN MD Apr 26, 2024 13:17
[2024-04-26] MEDS ORDERED: FUROSEMIDE 20 MG/2 ML VIAL IV SCH ×2 (13:30→18:00)
[2024-04-26] MEDS: FUROSEMIDE 20 MG/2 ML VIAL IV ONE (14:26)
[2024-04-26] MEDS: FUROSEMIDE 40 MG/4 ML VIAL IV SCH (18:17)
[2024-04-26] MEDS: ACETAMINOPHEN 325 MG TAB PO PRN (20:24)
[2024-04-26 21:00] VITALS: BP 113/80; PULSE 90; RESP 18; TEMP 97.4; O2SAT 96
[2024-04-26 21:38] VITALS: O2SAT 98
[2024-04-26] MEDS: ATORVASTATIN 20 MG TAB PO SCH (23:06)
[2024-04-27] VITALS (9 sets, daily range): BP systolic 100–129; BP diastolic 60–86; PULSE 75–114; RESP 16–20; TEMP 98.1–98.4; O2SAT 91–100
--- NOTE | 2024-04-27 09:24 | DVHPN2 ---
Reviewed: Care Plan, H&P, Labs, Medications, Previous Orders, Radiology Changes from previous H/P or p: No Changes Objective Vitals Vital Signs Date Time Temp Pulse Resp B/P (MAP) Pulse Ox O2 Delivery O2 Flow Rate FiO2 04/27/24 09:13 111 119/86 04/27/24 08:49 98.1 18 91 98.1 04/27/24 07:15 Room Air 0.0 04/27/24 07:15 21 Intake/Output Intake and Output 04/27/24 07:00 Intake Total 1120 ml Balance 1120 ml Intake Oral 1120 ml # Voids 9 Medications Current Medications Medications Dose Ordered Sig/Kristin Route Start Time Stop Time Status Last Admin Dose Admin Albuterol 2.5 mg Q6HPRN PRN NEB 04/26/24 05:15 Aspirin 81 mg DAILY PO 04/26/24 10:00 04/27/24 09:14 81 MG Levothyroxine Sodium 112 mcg QAM@0600 PO 04/26/24 06:00 04/27/24 05:31 112 MCG Empaglifozin 10 mg DAILY PO 04/26/24 10:00 04/27/24 09:13 10 MG Sacubitril/ Valsartan 1 tab BID PO 04/26/24 10:00 04/27/24 09:13 1 TAB Carvedilol 3.125 mg Q12HR PO 04/26/24 10:00 04/27/24 09:13 3.125 MG Atorvastatin Calcium 10 mg HS PO 04/26/24 22:00 04/26/24 23:06 10 MG Temazepam 15 mg QHSP PRN PO 04/26/24 05:15 Ondansetron HCl 4 mg Q4HP PRN IV 04/26/24 05:15 Acetaminophen 650 mg Q6HP PRN PO 04/26/24 05:15 04/26/24 20:24 650 MG Furosemide 40 mg BIDD IV 04/26/24 18:00 04/27/24 05:33 40 MG Laboratory Results Laboratory Tests 04/26/24 01:41 Urinalysis Test 04/26/24 03:00 Urine Color Yellow (Yellow) Urine Clarity Clear (Clear) Urine pH 5.5 (5.0-9.0) Urine Specific [place] 1.022 (1.001-1.035) Urine Protein 1+ (Negative) H Urine Ketones Negative (Negative) Urine Blood Negative /uL (Negative) Urine Nitrite Negative (Negative) Urine Bilirubin Negative (Negative) Urine Urobilinogen Normal mg/dL (Negative) Urine Leukocyte Esterase Negative /uL (Negative) Urine RBC 2 /hpf (0 - 3) Urine WBC 5 /hpf (0 - 3) Urine Squamous Epithelial Cells None seen /hpf (<5) Urine Bacteria Few /hpf (None Seen) H Urine Mucus Few (None Seen) Urine Sperm Present /hpf (None Seen) Urine Glucose 4+ mg/dL (Normal) H Labs and/or images reviewed: Labs reviewed by me, Image(s) reviewed by me Assessment/Plan Assessment/Plan Acute hypoxic respiratory failure: Oxygen by nasal cannula Acute on chronic systolic heart failure (HFrEF 20%) BNP 2800: Lasix 40 mg IV b.i.d. Coreg, consult for Dr. Costa NSTEMI likely type 2 due to above Acute COPD exacerbation Acute transaminitis Hypothyroidism Bipolar disorder Anxiety disorder Chronic Current smoker: Counseled Non Compliance: Patient has not been taking CHF medications for last 2-3 wks Time spent 55 minutes Patient is full code Advanced care planning time 20 minutes [employer] consult for PCP Plan discussed with: Patient My Orders Orders - DERIAN LANDIN MD Procedure Category Date Status Time * Cardiology Consult CONS 04/26/24 Transmitted 13:18 Furosemide Injection PHA 04/26/24 In Process (Lasix Injection) 18:00 * Dietary Consult CONS 04/26/24 Transmitted 16:05 Date of Service: Apr 27, 2024 Billing Provider: DERIAN LANDIN MD Common Visit Codes: [id number] INP/OBS CARE(HIGH) DERIAN LANDIN MD Apr 27, 2024 09:24
--- NOTE | 2024-04-27 09:53 | DVHINCON2 ---
Date Seen: Apr 27, 2024 Referring Physician MD Ravi Reason for Consultation CHF exacerbation History of Present Illness This is a 44-year-old male patient who presents to the emergency room with chief complaint of shortness of breath for two weeks. The patient has a previous history of congestive heart failure and reports being out of his medications for approximately two weeks. He comes to the emergency room for further evaluation. Cardiology has now been consulted for CHF exacerbation. Initial twelve lead electrocardiogram reveals sinus tachycardia with PVC and nonspecific ST segment changes to lateral leads. Initial troponin level of 68ng/L with flat trend thereafter. Initial BNP level of 2875.81pg/mL. Significant past medical history includes congestive heart failure, COPD, thyroid disease, bipolar disorder, cannabinoid use, amphetamine use, tobacco use, and medical noncompliance. The patient denies following up with a vp customer development in the outpatient setting. He admits to previous amphetamine use approximately four days ago. Past Medical History Past medical history reviewed. No other significant than mentioned above. Past Surgical History Denies all surgeries Family History: Cardiovascular disease G8 FATHER Hereditary hemorrhagic telangiectasia (HHT) G8 MOTHER Family History Family history reviewed. Social History Patient admits to methamphetamine use and cannabinoid use Patient has a 15 pack-year history, smokes approximately a few cigarettes per day Patient admits to social alcohol use Allergies: Coded Allergies: NO KNOWN ALLERGIES (Unverified , 01/11/11) Home Meds Active Scripts Levothyroxine Sodium (Levothyroxine Sodium) 112 Mcg Tab, 1 TAB PO DAILY for 30 Days, #30 TAB 5 Refills Prov:CASPER MONCADA RESIDENT 02/15/24 Furosemide (Furosemide) 40 Mg Tab, 1 TAB PO DAILY for 30 Days, #30 TAB 5 Refills Prov:CASPER MONCADA RESIDENT 02/15/24 Empagliflozin (Jardiance) 10 Mg Tab, 10 MG PO DAILY for 30 Days, #30 TAB Prov:CASPER MONCADA RESIDENT 02/15/24 Sacubitril-Valsartan (Entresto 24-26 mg) 1 Tab Tab, 1 TAB PO BID for 30 Days, #60 TAB Prov:CASPER MONCADA RESIDENT 02/15/24 Reported Medications Carvedilol (Carvedilol) 3.125 Mg Tab, 1 TAB PO BID for 30 Days, #60 04/26/24 Quetiapine Fumerate (Seroquel) 400 Mg Tab, 1 TAB PO QPM for 30 Days, #30 02/15/24 Quetiapine Fumerate (Seroquel) 200 Mg Tab, 1 TAB PO QAM for 30 Days, #30 02/15/24 Clonazepam (Clonazepam) 0.5 Mg Tab, 1 TAB PO HS PRN for ANXIETY for 30 Days, #30 02/14/24 Home Meds Home medications reviewed. Current Medications Current Medications Medications (Trade) Dose Ordered Sig/Kristin Route PRN Reason Start Time Stop Time Status Last Admin Furosemide (Lasix Injection) 20 mg BIDD IV 04/26/24 18:00 04/26/24 13:21 DC Aspirin 81 mg DAILY PO 04/26/24 10:00 04/27/24 09:14 Empaglifozin (Jardiance) 10 mg DAILY PO 04/26/24 10:00 04/27/24 09:13 Sacubitril/ Valsartan (Entresto 24-26 Mg tab) 1 tab BID PO 04/26/24 10:00 04/27/24 09:13 Carvedilol (Coreg Tablet) 3.125 mg Q12HR PO 04/26/24 10:00 04/27/24 09:13 Atorvastatin Calcium (Lipitor) 10 mg HS PO 04/26/24 22:00 04/26/24 23:06 Furosemide (Lasix Injection) 40 mg BIDD IV 04/26/24 13:30 04/26/24 14:11 DC Furosemide (Lasix Injection) 40 mg BIDD IV 04/26/24 18:00 04/27/24 05:33 Review of Systems Constitutional: No symptom reported Ears, Nose, & Throat: No symptom reported Eyes: No symptom reported Neurological: No symptoms reported Pulmonary/Respiratory: Shortness of breath Cardiovascular: No symptom reported Gastrointestinal: No symptom reported Genitourinary: No symptom reported Musculoskeletal: No symptom reported Skin: No symptom reported Psychiatric: No symptom reported Endocrine: No symptom reported Hematologic/Lymphatic: No symptom reported Vital Signs Vital Signs Date Time Temp Pulse Resp B/P (MAP) Pulse Ox O2 Delivery O2 Flow Rate FiO2 04/27/24 09:13 111 119/86 04/27/24 08:49 98.1 18 91 98.1 04/27/24 07:15 Room Air 0.0 04/27/24 07:15 21 Physical Exam General Appearance: Cooperative. Unkempt Pulmonary/Respiratory: Clear, bilateral breaths sounds. Cardiovascular/Chest: Regular rate and rhythm. Peripheral Pulses: 2+ Radial (R). 2+ Radial (L). 2+ Pedal (R). 2+ Pedal (L) Abdominal Exam: Normal bowel sounds. Ankle Exam: Negative ankle edema Lower extremities: Negative lower extremity edema Neuro/Mental Status: A/OX4, coherent. Thoughts/Psych: Normal thought pattern. Appropriate mood and affect. Good judgment and insight. Appearance: No acute distress. Skin Exam: Normal inspection. Normal color. Warm and dry. Labs/Diagnostic Data Labs Test 04/26/24 06:08 04/26/24 03:00 04/26/24 01:41 Range/Units Troponin I High Sensitivity 68 *H </=54 ng/L Urine Color Yellow Yellow Urine Clarity Clear Clear Urine pH 5.5 5.0-9.0 Urine Specific [place] 1.022 1.001-1.035 Urine Protein 1+ H Negative Urine Ketones Negative Negative Urine Blood Negative Negative /uL Urine Nitrite Negative Negative Urine Bilirubin Negative Negative Urine Urobilinogen Normal Negative mg/dL Urine Leukocyte Esterase Negative Negative /uL Urine RBC 2 0 - 3 /hpf Urine WBC 5 0 - 3 /hpf Urine Squamous Epithelial Cells None seen <5 /hpf Urine Bacteria Few H None Seen /hpf Urine Mucus Few None Seen Urine Sperm Present None Seen /hpf Urine Glucose 4+ H Normal mg/dL White Blood Count 8.2 4.4-10.8 10^3/uL Red Blood Count 4.71 4.5-5.90 10^6/uL Hemoglobin 11.0 L 13.5-17.5 g/dL Hematocrit 35.4 L 41.0-53.0 % Mean Corpuscular Volume 75.0 L 80.0-100.0 fL Mean Corpuscular Hemoglobin 23.3 L 28.0-32.0 pg Mean Corpuscular Hemoglobin Concent 31.1 L 32.0-36.0 g/dL Red Cell Distribution Width 24.9 H 11.8-14.3 % Platelet Count 428 140-450 10^3/uL Mean Platelet Volume 7.5 6.9-10.8 fL Neutrophils (%) (Auto) 71.6 37.0-80.0 % Lymphocytes (%) (Auto) 16.0 10.0-50.0 % Monocytes (%) (Auto) 11.4 0.0-12.0 % Eosinophils (%) (Auto) 0.6 0.0-7.0 % Basophils (%) (Auto) 0.4 0.0-2.0 % Neutrophils # (Auto) 5.9 1.6-8.6 10 ^3/uL Lymphocytes # (Auto) 1.3 0.4-5.4 10 ^3/uL Monocytes # (Auto) 0.9 0-1.3 10 ^3/uL Eosinophils # (Auto) 0 0-0.8 10 ^3/uL Basophils # (Auto) 0 0-0.2 10 ^3/uL Nucleated Red Blood Cells 0.1 % Platelet Estimate Adequate Hypochromasia (manual) Moderate Poikilocytosis (manual) Slight Anisocytosis (manual) Moderate Microcytosis Slight Target Cells Few Ovalocytes Few Schistocytes Few Sodium Level 140 136-145 mmol/L Potassium Level 4.8 3.5-5.1 mmol/L Chloride Level 108 H 98-107 mmol/L Carbon Dioxide Level 23 20-31 mmol/L Anion Gap 9 5-15 Blood Urea Nitrogen 15 9-23 mg/dL Creatinine 1.32 H 0.700-1.30 mg/dL Glomerular Filtration Rate Calc 69 >90 mL/min BUN/Creatinine Ratio 11.4 10.0-20.0 Serum Glucose 95 74-106 mg/dL Calcium Level 9.9 8.7-10.4 mg/dL Total Bilirubin 1.0 0.2-1.0 mg/dL Aspartate Amino Transferase (AST) 64 H 13-40 U/L Alanine Aminotransferase (ALT) 135 H 7-40 U/L Alkaline Phosphatase 107 46-116 U/L B-Type Natriuretic Peptide 2875.81 0-100 pg/mL Total Protein 6.4 5.7-8.2 g/dL Albumin 4.1 3.2-4.8 g/dL Assessment Acute on chronic decompensated HFrEF, NYHA class III Dilated cardiomyopathy, likely drug-induced NSTEMI, likely type II secondary to above COPD Acute kidney injury Thyroid disease Bipolar disorder Polysubstance abuse Tobacco use Medical noncompliance Plan/Recommendation We will continue with the following plan/recommendations (Dr. Pino): * Transthoracic echocardiogram reveals EF 15-20% with severe global hypokinesis * Initiate GDMT for CHF as tolerated * Consider spironolactone with improved creatinine * Strict intake and output, daily weights, maintain fluid restriction * Risk factor modifications, counseled * Adherence to medications * Cessation of substance use Patient seen and examined at bedside with . Discussed the importance of medical compliance with patient. Also discussed the importance of cessation from amphetamine use. The patient would benefit from outpatient ischemic workup if he is able to prove compliance and abstain from all illicit drug use. We will continue with conservative medical management. There is no further inpatient cardiac workup indicated at this time. Patient should follow up with Cardiology in the outpatient setting within 1-2 weeks post discharge. Thank you for allowing us to care for this patient. Please call with any questions or concerns. Critical care time spent: 44 minutes This medical document was created using an electronic medical record system with voice recognition software and computerized dictation system. Although this document has been carefully reviewed, there might still be some phonetic and typographical errors. Occasional wrong-word or ``sound-alike substitutions may have occurred due to the inherent limitations of voice recognition software. These areas are purely typographical due to imperfections of the software programs and do not reflect any compromise in the patient's medical care. Please read the chart carefully and recognize, using context, where these substitutions have occurred. Plan discussed with: Patient NYHA Physical activity limitations: Class3(Marked) ordinary (activity causes symtoms) Date of Service: Apr 27, 2024 Billing Provider: EMMA PINO MD Cardiology Common Codes: 06307-[id number] INP/OBS CARE (High) Cardiology Consultation Codes: [id number] CONSULT <45MIN GAURI AHMADI EMAIL DEVELOPER Apr 27, 2024 09:53
[2024-04-27 12:43] LABS: Basophils # (auto) 0 10 ^3/uL (0-0.2); Eosinophils # (auto) 0.1 10 ^3/uL (0-0.8); Lymphocytes # (auto) 1.2 10 ^3/uL (0.4-5.4)
[2024-04-27 12:45] LABS: Basophils % (auto) 0.5 % (0.0-2.0); Eosinophils % (auto) 1.4 % (0.0-7.0); Hematocrit 43.3 % (41.0-53.0); Hemoglobin 13.7 g/dL (13.5-17.5); Lymphocytes % (auto) 13.2 % (10.0-50.0); Mean Corpuscular Hemoglobin 23.3 pg (28.0-32.0); Mean Corpuscular Hgb Conc. 31.6 g/dL (32.0-36.0); Mean Corpuscular Volume 73.6 fL (80.0-100.0); Monocytes # (auto) 0.8 10 ^3/uL (0-1.3); Monocytes % (auto) 9.1 % (0.0-12.0); Neutrophils % (auto) 75.8 % (37.0-80.0); Nucleated Red Blood Cells % 0.1 %; Platelet Count (auto) 401 10^3/uL (140-450); Red Blood Cells 5.88 10^6/uL (4.5-5.90); White Blood Cell 9.3 10^3/uL (4.4-10.8)
[2024-04-27 12:55] LABS: Chloride 100 mmol/L (98-107); Potassium 3.6 mmol/L (3.5-5.1)
[2024-04-27 12:56] LABS: Anion Gap 9 (5-15); Calcium 9.9 mg/dL (8.7-10.4); Carbon Dioxide 27 mmol/L (20-31)
[2024-04-27 12:57] LABS: Amphetamine Screen, Urine Neg (NEGATIVE)
[2024-04-27 12:58] LABS: Red Cell Distribution Width 24.4 % (11.8-14.3)
[2024-04-27 13:01] LABS: BUN/Creatinine Ratio 13.7 (10.0-20.0); Blood Urea Nitrogen 20 mg/dL (9-23); Triglycerides 109 mg/dL (< 150)
[2024-04-27 13:02] LABS: LDL Cholesterol 68 mg/dL (< 100); Magnesium 1.9 mg/dL (1.6-2.6)
[2024-04-27 13:03] LABS: Cholesterol 112 mg/dL (< 200)
[2024-04-27 13:09] LABS: Opiate Scree,Urine Neg (NEGATIVE)
[2024-04-27 13:09] LABS: Glucose 149 mg/dL (74-106); HDL Cholesterol 35 mg/dL (40-59); Sodium 136 mmol/L (136-145)
[2024-04-27 13:10] LABS: Barbiturate Scree,Urine Neg (NEGATIVE); Benzodiazephine Screen, Urine Neg (NEGATIVE); Cocaine Screen, Urine Neg (NEGATIVE); Phencyclidine Screen, Urine Neg (NEGATIVE)
--- NOTE | 2024-04-27 13:34 | DVHSR ---
APPROVED REPORT EXAM: Two-dimensional and M-mode echocardiogram with Doppler and color Doppler. Blood Pressure: 127/77 mmHg INDICATION EVALUATE CARDIAC FUNCTION RISK FACTORS Height: 5'9", Weight: 200 DIMENSIONS LVDd6.5 (3.8-5.7cm)LA (2D)4.6 (1.9-4.0cm)Aortic Root3.3 (2.0-3.7cm) LVDs5.9 (2.5-4.0cm)LA (MM) (1.9-4.0cm)Aortic Cusp Exc2.0 (1.5-2.0cm) EF (%) 19.0 (55-70%)Rt. Atrium3.9 (1.9-4.0cm)Asc. Aorta3.4 cm IVSd0.8 (0.7-1.1cm)RV (D)4.4 (1.8-2.4cm) PWd1.0 (0.7-1.1cm) Mitral Valve MitralMitral Stenosis E/A ratio0.02D MVAcm2 Aortic Valve Aortic ValveAortic Stenosis V10.62m/Jordin Mean GR.2mmHg V20.87m/Jordin Peak GR.3mmHg LVOT Diameter2.3 (1.8-2.4cm)Doppler AVA2.96cm2 AI P 1/2 Rsqm651.79ms Pulmonic Valve V20.55m/s Tricuspid Valve TR Velocity2.46m/s [id number] LEFT VENTRICLE The left ventricle is severely dilated in size. Wall thickness is normal. Ejection fraction is lior rely decreased and is estimated at 15-20%. There is severe global hypokinesis and dyskinesis of the septum. Diastolic function is indeterminate. RIGHT VENTRICLE The right ventricle is dilated in size. Right ventricular systolic function is moderately decreased. ATRIA The left atrium is moderately to severely dilated in size. The right atrium is of normal size. MITRAL VALVE There is some tethering of the leaflets. No significant mitral regurgitation. PULMONIC VALVE Likely normal. TRICUSPID VALVE Normal structure and function. There is mild tricuspid regurgitation. PA systolic pressure is estim ated at 30-35 mm Hg. AORTIC VALVE Normal in structure and function. There is mild insufficiency. GREAT VESSELS The aortic root is of normal size. PERICARDIAL EFFUSION No pericardial effusion. IVC is of normal size. Conclusion Severely dilated left ventricle with severely decreased systolic function. Ejection fraction is estimated at 15-20%. Dilated right ventricle with moderately decreased systolic function. Moderately to severely dilated left atrial chamber size. No hemodynamically significant valvular disease. No significant pericardial effusion.
[2024-04-27 13:49] LABS: Cannabinoid Screen, Urine Pos (NEGATIVE)
[2024-04-28 01:00] VITALS: BP 114/62; PULSE 106; RESP 20; TEMP 98; O2SAT 96
[2024-04-28 05:00] VITALS: BP 100/63; PULSE 99; RESP 20; TEMP 98.4; O2SAT 97
[2024-04-28 07:20] VITALS: O2SAT 96
[2024-04-28 09:00] VITALS: BP 102/55; PULSE 97; RESP 20; TEMP 98; O2SAT 94
[2024-04-28] MEDS ORDERED: LEVO-849 PO (10:29)
[2024-04-28] MEDS ORDERED: SACU1TAB PO (10:29)
[2024-04-28] MEDS ORDERED: ASPI-628 PO (10:29)
[2024-04-28] MEDS ORDERED: CARV-214 PO (10:29)
[2024-04-28] MEDS ORDERED: ATOR20TA PO (10:29)
[2024-04-28] MEDS ORDERED: FURO1TAB31 PO (10:29)
[2024-04-28] MEDS ORDERED: EMPA1TAB PO (10:29)
--- NOTE | 2024-04-28 10:30 | DVHPN2 ---
Reviewed: Care Plan, H&P, Labs, Medications, Previous Orders, Radiology Changes from previous H/P or p: No Changes Objective Vitals Vital Signs Date Time Temp Pulse Resp B/P (MAP) Pulse Ox O2 Delivery O2 Flow Rate FiO2 04/28/24 09:21 108/76 04/28/24 09:00 98.0 97 20 94 98.0 04/28/24 07:20 Room Air 0.0 04/28/24 07:20 21 Intake/Output Intake and Output 04/28/24 07:00 Intake Total 1700 ml Balance 1700 ml Intake Oral 800 ml Tube Feeding 900 ml # Voids 13 # Bowel Movements 1 Medications Current Medications Medications Dose Ordered Sig/Kristin Route Start Time Stop Time Status Last Admin Dose Admin Albuterol 2.5 mg Q6HPRN PRN NEB 04/26/24 05:15 Aspirin 81 mg DAILY PO 04/26/24 10:00 04/28/24 09:22 81 MG Levothyroxine Sodium 112 mcg QAM@0600 PO 04/26/24 06:00 04/28/24 05:33 112 MCG Empaglifozin 10 mg DAILY PO 04/26/24 10:00 04/28/24 09:22 10 MG Sacubitril/ Valsartan 1 tab BID PO 04/26/24 10:00 04/28/24 09:22 1 TAB Carvedilol 3.125 mg Q12HR PO 04/26/24 10:00 04/27/24 21:42 3.125 MG Atorvastatin Calcium 10 mg HS PO 04/26/24 22:00 04/27/24 21:41 10 MG Temazepam 15 mg QHSP PRN PO 04/26/24 05:15 Ondansetron HCl 4 mg Q4HP PRN IV 04/26/24 05:15 Acetaminophen 650 mg Q6HP PRN PO 04/26/24 05:15 04/26/24 20:24 650 MG Furosemide 40 mg BIDD IV 04/26/24 18:00 04/28/24 09:21 40 MG Laboratory Results Laboratory Tests 04/27/24 12:05 Chemistry Test 04/27/24 12:05 Calcium Level 9.9 mg/dL (8.7-10.4) Magnesium Level 1.9 mg/dL (1.6-2.6) Lipid panel Test 04/27/24 12:05 Cholesterol Level 112 mg/dL (< 200) HDL Cholesterol 35 mg/dL (40-59) L Triglycerides Level 109 mg/dL (< 150) HgA1c, TSH Test 04/27/24 12:05 Hemoglobin A1c 5.8 % A1C (<5.7) H Thyroid Stimulating Hormone (TSH) 14.21 uIU/mL (0.55-4.78) H Urinalysis Test 04/26/24 03:00 Urine Color Yellow (Yellow) Urine Clarity Clear (Clear) Urine pH 5.5 (5.0-9.0) Urine Specific [place] 1.022 (1.001-1.035) Urine Protein 1+ (Negative) H Urine Ketones Negative (Negative) Urine Blood Negative /uL (Negative) Urine Nitrite Negative (Negative) Urine Bilirubin Negative (Negative) Urine Urobilinogen Normal mg/dL (Negative) Urine Leukocyte Esterase Negative /uL (Negative) Urine RBC 2 /hpf (0 - 3) Urine WBC 5 /hpf (0 - 3) Urine Squamous Epithelial Cells None seen /hpf (<5) Urine Bacteria Few /hpf (None Seen) H Urine Mucus Few (None Seen) Urine Sperm Present /hpf (None Seen) Urine Glucose 4+ mg/dL (Normal) H Labs and/or images reviewed: Labs reviewed by me, Image(s) reviewed by me Assessment/Plan Assessment/Plan Acute hypoxic respiratory failure: Oxygen by nasal cannula Acute on chronic systolic heart failure (HFrEF 20%) BNP 2800: Lasix 40 mg IV b.i.d. Coreg, Entresto aspirin Jardiance consult for Dr. Costa appreciated, no further cardiac workup NSTEMI likely type 2 due to above Acute COPD exacerbation Acute transaminitis Hypothyroidism Bipolar disorder Anxiety disorder Chronic Current smoker: Counseled Non Compliance: Patient has not been taking CHF medications for last 2-3 wks Time spent 55 minutes Patient is full code Advanced care planning time 20 minutes Agency Sales Representative consult for PCP Plan discussed with: Patient Date of Service: Apr 28, 2024 Billing Provider: DERIAN LANDIN MD Common Visit Codes: [id number] INP/OBS CARE(HIGH) DERIAN LANDIN MD Apr 28, 2024 10:30
--- NOTE | 2024-04-28 10:35 | DVHDS2 ---
Discharge Summary Date of Admission Apr 26, 2024 at 05:12 Date of Discharge: Apr 28, 2024 Admitting Diagnosis Shortness of breath Wounds: None Labs/Diagnostic Data: Laboratory Results Test 04/27/24 12:05 04/27/24 12:00 04/26/24 06:08 04/26/24 03:00 White Blood Count 9.3 10^3/uL (4.4-10.8) Red Blood Count 5.88 10^6/uL (4.5-5.90) Hemoglobin 13.7 g/dL (13.5-17.5) Hematocrit 43.3 % (41.0-53.0) Mean Corpuscular Volume 73.6 fL (80.0-100.0) Mean Corpuscular Hemoglobin 23.3 pg (28.0-32.0) Mean Corpuscular Hemoglobin Concent 31.6 g/dL (32.0-36.0) Red Cell Distribution Width 24.4 % (11.8-14.3) Platelet Count 401 10^3/uL (140-450) Mean Platelet Volume 8.0 fL (6.9-10.8) Neutrophils (%) (Auto) 75.8 % (37.0-80.0) Lymphocytes (%) (Auto) 13.2 % (10.0-50.0) Monocytes (%) (Auto) 9.1 % (0.0-12.0) Eosinophils (%) (Auto) 1.4 % (0.0-7.0) Basophils (%) (Auto) 0.5 % (0.0-2.0) Neutrophils # (Auto) 7.0 10 ^3/uL (1.6-8.6) Lymphocytes # (Auto) 1.2 10 ^3/uL (0.4-5.4) Monocytes # (Auto) 0.8 10 ^3/uL (0-1.3) Eosinophils # (Auto) 0.1 10 ^3/uL (0-0.8) Basophils # (Auto) 0 10 ^3/uL (0-0.2) Nucleated Red Blood Cells 0.1 % Sodium Level 136 mmol/L (136-145) Potassium Level 3.6 mmol/L (3.5-5.1) Chloride Level 100 mmol/L (98-107) Carbon Dioxide Level 27 mmol/L (20-31) Anion Gap 9 (5-15) Blood Urea Nitrogen 20 mg/dL (9-23) Creatinine 1.46 mg/dL (0.700-1.30) Glomerular Filtration Rate Calc 61 mL/min (>90) BUN/Creatinine Ratio 13.7 (10.0-20.0) Serum Glucose 149 mg/dL (74-106) Hemoglobin A1c 5.8 % A1C (<5.7) Calcium Level 9.9 mg/dL (8.7-10.4) Magnesium Level 1.9 mg/dL (1.6-2.6) Triglycerides Level 109 mg/dL (< 150) Cholesterol Level 112 mg/dL (< 200) LDL Cholesterol 68 mg/dL (< 100) HDL Cholesterol 35 mg/dL (40-59) Thyroid Stimulating Hormone (TSH) 14.21 uIU/mL (0.55-4.78) Urine Opiates Screen Neg (NEGATIVE) Urine Fentanyl Screen Neg (NEGATIVE) Urine Barbiturates Screen Neg (NEGATIVE) Urine Phencyclidine Screen Neg (NEGATIVE) Urine Amphetamines Screen Neg (NEGATIVE) Urine Benzodiazepines Screen Neg (NEGATIVE) Urine Cocaine Screen Neg (NEGATIVE) Urine Cannabinoids Screen Pos (NEGATIVE) Troponin I High Sensitivity 68 ng/L (</=54) Urine Color Yellow (Yellow) Urine Clarity Clear (Clear) Urine pH 5.5 (5.0-9.0) Urine Specific [place] 1.022 (1.001-1.035) Urine Protein 1+ (Negative) Urine Ketones Negative (Negative) Urine Blood Negative /uL (Negative) Urine Nitrite Negative (Negative) Urine Bilirubin Negative (Negative) Urine Urobilinogen Normal mg/dL (Negative) Urine Leukocyte Esterase Negative /uL (Negative) Urine RBC 2 /hpf (0 - 3) Urine WBC 5 /hpf (0 - 3) Urine Squamous Epithelial Cells None seen /hpf (<5) Urine Bacteria Few /hpf (None Seen) Urine Mucus Few (None Seen) Urine Sperm Present /hpf (None Seen) Urine Glucose 4+ mg/dL (Normal) Test 04/26/24 01:41 Platelet Estimate Adequate Hypochromasia (manual) Moderate Poikilocytosis (manual) Slight Anisocytosis (manual) Moderate Microcytosis Slight Target Cells Few Ovalocytes Few Schistocytes Few Total Bilirubin 1.0 mg/dL (0.2-1.0) Aspartate Amino Transferase (AST) 64 U/L (13-40) Alanine Aminotransferase (ALT) 135 U/L (7-40) Alkaline Phosphatase 107 U/L (46-116) B-Type Natriuretic Peptide 2875.81 pg/mL (0-100) Total Protein 6.4 g/dL (5.7-8.2) Albumin 4.1 g/dL (3.2-4.8) Other Laboratory Tests 04/27/24 12:05 Brief Hx & Hospital Course: 44-year-old male chronic congestive heart failure COPD hypothyroidism bipolar anxiety chronic current smoker polysubstance abuse came in complaining of exacerbation of congestive heart failure with shortness of breaths. He was not been taking CHF medications for the last three weeks. Placed on Lasix Coreg Entresto aspirin Jardiance. Echocardiogram 15-20 percent ejection fraction seen by Cardiology advised to continue the CHF medications and no further cardiac workup. The patient was advised accordingly and being discharged home. He was advised to fill the prescription today and start taking medications. General condition poor but stable at the time of discharge. He is also advised to quit using illicit drugs Consults/Reason for consult Cardiology Dr. Costa Operations or Procedures Echocardiogram Condition at Discharge: Fair Final Diagnosis/Problems List Acute hypoxic respiratory failure: Oxygen by nasal cannula Acute on chronic systolic heart failure (HFrEF 20%) BNP 2800: Lasix 40 mg IV b.i.d. Coreg, Entresto aspirin Jardiance consult for Dr. Costa appreciated, no further cardiac workup NSTEMI likely type 2 due to above Acute COPD exacerbation Acute transaminitis Hypothyroidism Bipolar disorder Anxiety disorder Chronic Current smoker: Counseled Non Compliance: Patient has not been taking CHF medications for last 2-3 wks Discharge Disposition: Home Discharge Instruct/Medications Diet: Cardiac 2g Na,low cholest Activity: Light activity Follow Up/Referral: Fill prescription today and start taking medications Stop doing street drugs Follow up with your primary Dr in one week Medications: Lasix Lipitor Coreg Entresto Jardiance Aspirin Synthroid Transmitted to [facility] 39 (Time Taken For discharge summary 39 minutes) Discharge Statement: "Patient was advised to return to the ER or call 911 if any headaches, dizziness, shortness of breath, chest pain, abdominal pain, bleeding, fevers, or worsening of medical condition. Patient was counseled about treatment plan, medications, possible side effects, patientverbalized understanding. All questions were answered to the best of my ability. This discharge took greater then 30 minutes in planning, reviewing documentation, counseling the patient, and discussing with other team members." ASSESSMENT ASSESSMENT Hospital Course Improved marginally Assessment Acute hypoxic respiratory failure: Oxygen by nasal cannula Acute on chronic systolic heart failure (HFrEF 20%) BNP 2800: Lasix 40 mg IV b.i.d. Coreg, Entresto aspirin Jardiance consult for Dr. Costa appreciated, no further cardiac workup NSTEMI likely type 2 due to above Acute COPD exacerbation Acute transaminitis Hypothyroidism Bipolar disorder Anxiety disorder Chronic Current smoker: Counseled Non Compliance: Patient has not been taking CHF medications for last 2-3 wks Date of Service: Apr 28, 2024 Billing Provider: DERIAN LANDIN MD Common Visit Codes: [id number] DISCH DAY >30min DERIAN LANDIN MD Apr 28, 2024 10:35
[2024-04-28 12:30] VITALS: BP 111/67; PULSE 106; RESP 20; TEMP 98.2; O2SAT 97
== END 2024-04-28 12:38 | disposition home or self-care (01) | DRG 280 ==
LOC: ER 01:09 → OVERFLOW 05:12 → WEST WING 04-27 03:00
PROVIDERS: ADMIT Family Medicine; ATTEND Family Medicine
DX: I11.0 Hypertensive heart disease with heart failure (principal); I50.23 Acute on chronic systolic (congestive) heart failure; I21.A1 Myocardial infarction type 2; J96.01 Acute respiratory failure with hypoxia; J44.1 Chronic obstructive pulmonary disease with (acute) exacerbation; I42.0 Dilated cardiomyopathy; F17.210 Nicotine dependence, cigarettes, uncomplicated; F31.9 Bipolar disorder, unspecified; E03.9 Hypothyroidism, unspecified; F41.9 Anxiety disorder, unspecified; F12.10 Cannabis abuse, uncomplicated; I49.3 Ventricular premature depolarization; R00.0 Tachycardia, unspecified; R74.01 Elevation of levels of liver transaminase levels; Z91.199 Patient's noncompliance with other medical treatment and regimen due to unspecified reason; Z82.49 Family history of ischemic heart disease and other diseases of the circulatory system
CPT/HCPCS: 36415; 71045; 80048; 80053; 80061; 80307; 81001; 83036; 83735; 83880; 84443; 84484; 85025; 93005; 93306; G0378

== ENCOUNTER 2024-10-13 16:26 | Inpatient (IN) | payer MEDICARE, MEDICAID, OTHER ==
[~2024-10-13] VITALS: Ht 172.7 cm; Wt 90.6 kg
[~2024-10-13 16:26] MED LIST changes: -ALBUAER3 IN; +ASPI-628 PO; +ATOR20TA PO; -CARV-214 OR; +CARV-214 PO; +FURO1TAB31 PO; -LAM100T PO; +LEVO-849 PO; -LEVO750T40 PO; -POTA-36 PO; -PRED20TA2 PO
--- NOTE | 2024-10-13 16:42 | ED.PDOC ---
SOB-HPI HPI Comments CRUZ: HPI: Poor Historian. 44-year-old male brought in by ambulance for evaluation of two day history of chest pain nonspecific and shortness of breath at rest after he used methamphetamine. Patient has history of CHF and volume overload and somebody advised him to use methamphetamine to help him with his fluid overload. Patient has drank alcohol yesterday but denies any today. Patient denies any other acute symptoms. Past Medical History: CHF, COPD, methamphetamine abuse Past Surgical History: Tonsillectomy REVIEW OF SYSTEMS: CONSTITUTIONAL: Denies acute: fever, diaphoresis, chills, HEAD: Denies acute: headache, photophobia Eyes: Denies acute: Double vision, vision loss, eye pain, eye discharge. EARS: Denies acute: tinnitus, hearing loss, ear discharge, ear pain, THROAT: Denies acute: sore throat, swelling, difficulty swallowing , pain with swallowing, change in voice. NECK: Denies acute: neck pain, neck swelling, stiff neck. HEART: Denies acute : , palpitations, LUNGS: Denies acute: wheezing, cough, hemoptysis ABDOMEN: Denies acute: abdominal pain, , Vomiting, diarrhea, melena , hematemesis, hematochezia SKIN: Denies acute: rash, redness, lesions, itchiness. EXTREMITIES: Denies acute: calf pain, numbness, tingling, weakness, denies pain in extremity. Denies acute: Low back pain. Neuro: Denies acute: focal neurological deficit, motor or sensory focal neurological deficit, tremors, seizure like activity, confusion, dizziness, change in mental status, loss of bowel or bladder function, cauda equina like symptoms. : Denies acute: dysuria, hematuria, flank pain, increase in urinary frequency. PSYCH: Denies acute: hallucination, suicidal ideation, homicidal ideation. PHYSICAL EXAM: General: ----moderate---acute distress, awake and alert. Head: normocephalic, atraumatic. Neck: supple, trachea is midline, no swelling. Throat: Normal phonation. Eyes:, no erythema, no purulent discharge, no proptosis, no icterus. Heart: regular rate, regular rhythm, no significant murmur appreciated. Lungs: no apparent respiratory distress, Able to speak in full sentences. No wheezing, no rhonchi, no crackles. No stridors Clear to auscultation bilaterally. Abdomen: non tender to palpation, non distended, soft, no guarding, no rebound, + bowel sounds. Neuro: Awake, Alert, oriented to name, self, situation, follows commands GCS=15. Speech is normal. Skin: no petechia, no purpura, no cyanosis, non-pale, not jaundice. Lower extremities: --2/4 bilateral- Pitting edema no deformity, no focal swelling, no calf TTP. Makes eye contact. moves all four extremities. Face: no apparent facial droop. ED COURSE: DISCLAIMER: This medical document was created using an electronic medical record system with voice recognition software and computerized dictation system. Although this document has been carefully reviewed, there might still be some phonetic and typographical errors. Occasional wrong-word or "sound-alike" substitutions may have occurred due to the inherent limitations of voice recognition software. These areas are purely typographical due to imperfections of the software programs and do not reflect any compromise in the patient's medical care. Please read the chart carefully and recognize, using context, where these substitutions have occurred. Chief Complaint: Shortness of Breath Time Seen by MD: 16:35 Primary Care Provider: ? Information Source: Patient, Emergency Med Personnel Past Medical History PAST MEDICAL HISTORY: CHF, COPD Surgical History: Denies all surgeries Family History Family History: Reviewed,noncontributory to illness, Unknown Social History Smoker: Cigarettes, Other Alcohol: Denies ETOH Use Drugs: Marijuana, Methamphetamine Lives In: Home Was a procedure done? Was a procedure done?: No Differential Dx Differential Diagnosis: Other (DDx include ACS, unstable angina, anxiety, PE, pneumothroax, neoplasm, cardiac ischemia, COPD, asthma, CHF, pleural effusion, tobacco abuse, pneumonia, hypoxia, hypercapnia, anemia., infection/sepsis., pulmonary edema. Asthma, Cardiac tamponade, infection.) X-Ray, Labs, Meds, VS Vital Signs Date Time Temp Pulse Resp B/P (MAP) Pulse Ox O2 Delivery O2 Flow Rate FiO2 10/13/24 18:00 104 22 99/77 (84) 99 10/13/24 17:45 106/73 10/13/24 17:00 98.8 102 23 106/73 (84) 96 98.8 10/13/24 17:00 102 23 96 Room Air* 0 21 10/13/24 16:38 98.8 103 18 115/68 (84) 99 98.8 10/13/24 16:36 101 Lab Test 10/13/24 17:31 Range/Units White Blood Count 13.0 H 4.4-10.8 10^3/uL Red Blood Count 4.54 4.5-5.90 10^6/uL Hemoglobin 9.6 L 13.5-17.5 g/dL Hematocrit 31.3 L 41.0-53.0 % Mean Corpuscular Volume 68.9 L 80.0-100.0 fL Mean Corpuscular Hemoglobin 21.2 L 28.0-32.0 pg Mean Corpuscular Hemoglobin Concent 30.7 L 32.0-36.0 g/dL Red Cell Distribution Width 23.4 H 11.8-14.3 % Platelet Count 289 140-450 10^3/uL Mean Platelet Volume 9.0 6.9-10.8 fL Neutrophils (%) (Auto) 74.8 37.0-80.0 % Lymphocytes (%) (Auto) 7.8 L 10.0-50.0 % Monocytes (%) (Auto) 16.7 H 0.0-12.0 % Eosinophils (%) (Auto) 0.5 0.0-7.0 % Basophils (%) (Auto) 0.2 0.0-2.0 % Neutrophils # (Auto) 9.7 H 1.6-8.6 10 ^3/uL Lymphocytes # (Auto) 1.0 0.4-5.4 10 ^3/uL Monocytes # (Auto) 2.2 H 0-1.3 10 ^3/uL Eosinophils # (Auto) 0.1 0-0.8 10 ^3/uL Basophils # (Auto) 0 0-0.2 10 ^3/uL Nucleated Red Blood Cells 0.2 % Prothrombin Time 18.8 H 9.3-11.8 sec Prothrombin Time INR 1.89 H 0.9-1.15 Activated Partial Thromboplast Time 32.7 24.5-34.5 SEC Sodium Level 133 L 136-145 mmol/L Potassium Level 4.5 3.5-5.1 mmol/L Chloride Level 103 98-107 mmol/L Carbon Dioxide Level 18 L 20-31 mmol/L Anion Gap 12 5-15 Blood Urea Nitrogen 23 9-23 mg/dL Creatinine 1.08 0.700-1.30 mg/dL Glomerular Filtration Rate Calc 87 >90 mL/min BUN/Creatinine Ratio 21.3 H 10.0-20.0 Serum Glucose 89 74-106 mg/dL Lactic Acid Level 3.3 *H 0.4-2.0 mmol/L Calcium Level 9.2 8.7-10.4 mg/dL Magnesium Level 2.1 1.6-2.6 mg/dL Total Bilirubin 3.3 H 0.2-1.0 mg/dL Aspartate Amino Transferase (AST) 4426 H 13-40 U/L Alanine Aminotransferase (ALT) 3486 H 7-40 U/L Alkaline Phosphatase 270 H 46-116 U/L Troponin I High Sensitivity 58 *H </=54 ng/L B-Type Natriuretic Peptide 2116.58 0-100 pg/mL Total Protein 6.5 5.7-8.2 g/dL Albumin 4.2 3.2-4.8 g/dL Hepatitis A IgM Antibody Pending Hepatitis B Surface Antigen Pending Hepatitis B Core IgM Antibody Pending Hepatitis C Antibody Pending Current Medications Medications (Trade) Dose Ordered Sig/Kristin Route Start Time Stop Time Status Last Admin Furosemide (Lasix Injection) 60 mg ONCE ONCE IV 10/13/24 16:45 10/13/24 16:46 DC 10/13/24 17:45 [place] [id number] Ph: [phone] DIAGNOSTIC IMAGING Diagnostic Imaging Report : [id number] Signed PATIENT: YOLY CRUZ ACCT: [id number] UNIT: [id number] : 1980 LOC: ER ROOM / BED: / AGE / SEX: 44 / M ADM STATUS: REG ER SERVICE 1640 ORDERING PHYSICIAN: AIMEE TRINH DO PROCEDURE(s): CXRP - CHEST PORTABLE REASON: sob ORDER NUMBER(s): [id number], ACCESSION NUMBER(s): [id number] EXAM: XY CHEST PORTABLE TECHNIQUE: Single frontal chest radiograph CLINICAL HISTORY: sob COMPARISON: XY CHEST PORTABLE on DOS: 1/14/25, XY CHEST PORTABLE on DOS: 02/13/24 Findings/Impression: Frontal chest radiograph demonstrates no acute osseous or superficial soft tissue abnormalities. The trachea is midline. Cardiomegaly. No pneumothorax, pleural effusions, or consolidations. ATED BY: ANASTASIA BUI DO DICTATED DATE/TIME: 10/13/241829 SIGNED BY: ANASTASIA BUI DO SIGNED DATE/TIME: 10/13/241829 CC: Time of 1ST Reevaluation: 20:21 Reevaluation 1ST: Improved Patient Education/Counseling: Diagnosis, Treatment Family Education/Counseling: Other Comments Patient presented with the above HPI.-respiratory/cardiac-----workup was initiated. patient was found with the above mentioned diagnosis. the following medications were ordered: please refer to order lists of meds and tests obtained by myself Dr. Trinh. Patient ED course and VS have been stabilized. Patient has been reassessed in the ED and remained in a stable condition. Pertinent incidental findings were discussed with the patient and/or family. Patient/family voices understanding and is agreeable with plan. Patient has been observed in the ED adequate length of time to insure improvement/stability. Escalation of care considered: Consideration of escalation to observation or admission Patient was ADMITTED to the medicine team for further evaluation and treatment of their presentation. All the reports of any imaging studies that were ordered by myself were reviewed by myself. Departure 1 Departure Time of Disposition: 17:12 Impression: Primary Impression: CHF exacerbation Additional Impressions: Methamphetamine abuse Elevated troponin Elevated LFTs Anemia Disposition: ADMITTED INPATIENT Admit to: Tele Condition: Guarded Discharged With: Self Critical Care Note Critical Care Time?: Yes (45 min-critical care time only) Stability Stability form required: No Heart Score Heart Score: Heart Score Response (Comments) Value History Moderate Suspicious [address]-Deviation 2 Age <45 0 Risk Factors >3 or Hx ASHD 2 Troponin 1-2 x's Normal limit 1 Total 6 AIMEE TRINH DO Oct 13, 2024 16:42
[2024-10-13 17:00] VITALS: PULSE 102; RESP 23; O2SAT 96
[2024-10-13] MEDS: FUROSEMIDE 100 MG/10ML VIAL IV ONE (17:45)
[2024-10-13 18:02] LABS: Hemoglobin 9.6 g/dL (13.5-17.5); Nucleated Red Blood Cells % 0.2 %
[2024-10-13 18:04] LABS: Hematocrit 31.3 % (41.0-53.0); Mean Corpuscular Hemoglobin 21.2 pg (28.0-32.0); Mean Corpuscular Volume 68.9 fL (80.0-100.0)
[2024-10-13 18:13] LABS: Albumin 4.2 g/dL (3.2-4.8); Anion Gap 12 (5-15); BUN/Creatinine Ratio 21.3 (10.0-20.0); Blood Urea Nitrogen 23 mg/dL (9-23); Calcium 9.2 mg/dL (8.7-10.4); Chloride 103 mmol/L (98-107); Glucose 89 mg/dL (74-106); Magnesium 2.1 mg/dL (1.6-2.6); Potassium 4.5 mmol/L (3.5-5.1); Total Protein 6.5 g/dL (5.7-8.2)
[2024-10-13 18:26] LABS: Alkaline Phosphatase 270 U/L (46-116); Bilirubin, Total 3.3 mg/dL (0.2-1.0); Carbon Dioxide 18 mmol/L (20-31); Sodium 133 mmol/L (136-145)
[2024-10-13 18:29] LABS: Lactic Acid w/Reflex 3.3 mmol/L (0.4-2.0)
[2024-10-13] MEDS ORDERED: MORPHINE SULFATE INJ 2 MG/ml SYRG IV PRN (18:30)
[2024-10-13] MEDS ORDERED: NITROGLYCERIN 0.4 MG SL TAB SL PRN (18:30)
--- NOTE | 2024-10-13 18:32 | DVH ---
EXAM: XY CHEST PORTABLE TECHNIQUE: Single frontal chest radiograph CLINICAL HISTORY: sob COMPARISON: XY CHEST PORTABLE on DOS: 04/26/24, XY CHEST PORTABLE on DOS: 02/13/24 Findings/Impression: Frontal chest radiograph demonstrates no acute osseous or superficial soft tissue abnormalities. The trachea is midline. Cardiomegaly. No pneumothorax, pleural effusions, or consolidations.
[2024-10-13 18:34] LABS: Alanine Aminotransferase 3486 U/L (7-40)
--- NOTE | 2024-10-13 19:09 | DVHHP2 ---
History of Present Illness Reason for Visit: Shortness of breaths History of Present Illness 44-year-old male with a history of congestive heart failure presents for evaluation of shortness for breath. Patient reports a two day history of worsening shortness for breath with chest tightness. He states using methamphetamine today as he was told by one of his friends that he would get relief of the symptoms. Reports mild lower extremity swelling. No nausea or vomiting. No fever or chills. Past Medical History Hypertension, COPD, CHF Past Surgical History Tonsillectomy Family History Noncontributory Smoke: No ALCOHOL: occassional Drugs: Other (Methamphetamine use) Review of Systems Review of Systems Review of systems are currently negative otherwise addressed in HPI. Allergies: Coded Allergies: NO KNOWN ALLERGIES (Unverified , 01/11/11) Medications Current Medications Medications Dose Ordered Sig/Kristin Route Start Time Stop Time Status Last Admin Dose Admin Nitroglycerin 0.4 mg Q5MINP PRN SL 10/13/24 18:30 UNV Morphine Sulfate 2 mg Q30M PRN IV 10/13/24 18:30 UNV Exam Vital Signs Vital Signs Date Time Temp Pulse Resp B/P (MAP) Pulse Ox O2 Delivery O2 Flow Rate FiO2 10/13/24 17:45 106/73 10/13/24 17:00 98.8 102 23 96 98.8 10/13/24 17:00 Room Air* 0 21 Exam Gen: 44-year-old male in mild distress Skin: Warm, dry, normal color and texture, no rash. HEENT: Normocephalic atraumatic, mucous membranes moist and pink. Neck: Cervical and supraclavicular nodes normal without enlargement, trachea is midline, thyroid gland is normal without masses. Pulmonary: Clear to auscultation and percussion bilaterally. Cardiac: Regular rate and rhythm. No murmur Abdomen: Soft, nontender, nondistended, bowel sounds present all 4 quadrants, no guarding, no rigidity, no organomegaly. Extremities: No cyanosis, clubbing, plus two bilateral lower extremity swelling Neuro: Cranial nerves II through XII grossly intact, normal affect and speech, no focal motor deficits. Labs/Xrays ORDERING PHYSICIAN: AIMEE TRINH DO PROCEDURE(s): CXRP - CHEST PORTABLE REASON: sob ORDER NUMBER(s): [id number], ACCESSION NUMBER(s): [id number] EXAM: XY CHEST PORTABLE TECHNIQUE: Single frontal chest radiograph CLINICAL HISTORY: sob COMPARISON: XY CHEST PORTABLE on DOS: 04/26/24, XY CHEST PORTABLE on DOS: 02/13/24 Findings/Impression: Frontal chest radiograph demonstrates no acute osseous or superficial soft tissue abnormalities. The trachea is midline. Cardiomegaly. No pneumothorax, pleural effusions, or consolidations. Labs Test 10/13/24 18:52 10/13/24 18:35 10/13/24 17:31 Range/Units White Blood Count 13.0 H 4.4-10.8 10^3/uL Red Blood Count 4.54 4.5-5.90 10^6/uL Hemoglobin 9.6 L 13.5-17.5 g/dL Hematocrit 31.3 L 41.0-53.0 % Mean Corpuscular Volume 68.9 L 80.0-100.0 fL Mean Corpuscular Hemoglobin 21.2 L 28.0-32.0 pg Mean Corpuscular Hemoglobin Concent 30.7 L 32.0-36.0 g/dL Red Cell Distribution Width 23.4 H 11.8-14.3 % Platelet Count 289 140-450 10^3/uL Mean Platelet Volume 9.0 6.9-10.8 fL Neutrophils (%) (Auto) 74.8 37.0-80.0 % Lymphocytes (%) (Auto) 7.8 L 10.0-50.0 % Monocytes (%) (Auto) 16.7 H 0.0-12.0 % Eosinophils (%) (Auto) 0.5 0.0-7.0 % Basophils (%) (Auto) 0.2 0.0-2.0 % Neutrophils # (Auto) 9.7 H 1.6-8.6 10 ^3/uL Lymphocytes # (Auto) 1.0 0.4-5.4 10 ^3/uL Monocytes # (Auto) 2.2 H 0-1.3 10 ^3/uL Eosinophils # (Auto) 0.1 0-0.8 10 ^3/uL Basophils # (Auto) 0 0-0.2 10 ^3/uL Nucleated Red Blood Cells 0.2 % Sodium Level 133 L 136-145 mmol/L Potassium Level 4.5 3.5-5.1 mmol/L Chloride Level 103 98-107 mmol/L Carbon Dioxide Level 18 L 20-31 mmol/L Anion Gap 12 5-15 Blood Urea Nitrogen 23 9-23 mg/dL Creatinine 1.08 0.700-1.30 mg/dL Glomerular Filtration Rate Calc 87 >90 mL/min BUN/Creatinine Ratio 21.3 H 10.0-20.0 Serum Glucose 89 74-106 mg/dL Lactic Acid Level 3.3 *H 0.4-2.0 mmol/L Calcium Level 9.2 8.7-10.4 mg/dL Magnesium Level 2.1 1.6-2.6 mg/dL Total Bilirubin 3.3 H 0.2-1.0 mg/dL Aspartate Amino Transferase (AST) 4426 H 13-40 U/L Alanine Aminotransferase (ALT) 3486 H 7-40 U/L Alkaline Phosphatase 270 H 46-116 U/L B-Type Natriuretic Peptide 2116.58 0-100 pg/mL Total Protein 6.5 5.7-8.2 g/dL Albumin 4.2 3.2-4.8 g/dL Assessment/Plan Assessment/Plan Assessment Acute on chronic congestive heart failure Elevated troponin, demand ischemia Methamphetamine abuse Transaminitis Plan Admit the patient to telemetry to the hospitalist Liver ultrasound pending Monitor LFTs IV Lasix Resume home medications Continue treatment per orders. Plan discussed with: Patient My Orders Orders - SWATI ORTIZ AGACNP Procedure Category Date Status Time Admit ADMIT 10/13/24 Transmitted 18:22 Nitroglycerin [facility] 10/13/24 Logged Sublingual (Ntrostat 18:30 Morphine Sulfate PH[facility] 10/13/24 Logged Injection 18:30 Stat Ekg For Chest [facility] 10/13/24 In Process Pain 18:22 Notify Md Of Changes [facility] 10/13/24 In Process From Base 18:22 Telecommunications Administrator For [facility] 10/13/24 In Process 24 Hours 18:22 Emergency Dysrhythmia [facility] 10/13/24 In Process Protocol 18:22 Rhythm Strips Once [facility] 10/13/24 In Process Every Shift 18:22 Oxygen By Nasal RT 10/13/24 Transmitted Cannula 18:22 LIVER US 10/13/24 Logged 18:42 Acute Hepatitis Panel LAB 10/13/24 In Process 18:42 Carvedilol Tablet PHA 10/13/24 Verified (Coreg Tablet) 22:00 Empagliflozin PHA 10/14/24 Verified (Jardiance) 10:00 Furosemide Injection PHA 10/14/24 Verified (Lasix Injection) 06:00 Levothyroxine Tablet PHA 10/14/24 Verified (Synthroid Tablet) 06:00 Sacubitril-Valsartan PHA 10/13/24 Verified (Entresto 24-26 Mg 22:00 Aspirin Tablet PHA 10/14/24 Verified 10:00 PTPTT LAB 10/13/24 Verified 19:01 Albuterol Medneb PHA 10/13/24 Verified (Ventolin Medneb) 19:15 Ondansetron Hcl PHA 10/13/24 Verified (Zofran) 19:15 Complete Blood Count LAB 10/14/24 Verified 04:00 Comprehensive LAB 10/14/24 Verified Metabolic Panel 04:00 Cardiac DIET 10/14/24 Verified Diet-2gna,Lofat,Lochol Breakfast Condition: Fair [facility] 10/13/24 Verified 19:01 Bedrest With Bathroom [facility] 10/13/24 Verified Privileg 19:01 Date of Service: Oct 13, 2024 Billing Provider: SWATI ORTIZ Common Visit Codes: [id number] INP/OBS CARE (HIGH) SWATI ORTIZ Oct 13, 2024 19:09
[2024-10-13 19:10] LABS: Urine Protein, UAD TRACE (Negative)
[2024-10-13] MEDS ORDERED: ONDANSETRON HCL 4 MG/2 ML VIAL IV PRN (19:15)
[2024-10-13] MEDS ORDERED: ALBUTEROL SULF 2.5 MG/0.5ML(0.5%) NEB SOLN NEB PRN (19:15)
[2024-10-13 19:19] LABS: Cannabinoid Screen, Urine Pos (NEGATIVE)
[2024-10-13 19:20] VITALS: PULSE 97; RESP 25; O2SAT 98
[2024-10-13 19:26] LABS: Amphetamine Screen, Urine Pos (NEGATIVE); Barbiturate Scree,Urine Neg (NEGATIVE); Benzodiazephine Screen, Urine Neg (NEGATIVE); Cocaine Screen, Urine Neg (NEGATIVE); Opiate Scree,Urine Neg (NEGATIVE); Phencyclidine Screen, Urine Neg (NEGATIVE)
[2024-10-13 19:32] LABS: INR 1.89 (0.9-1.15); Partial Thromboplastin Time 32.7 SEC (24.5-34.5); Prothrombin Time 18.8 sec (9.3-11.8)
--- NOTE | 2024-10-13 20:36 | DVH ---
ULTRASOUND DOPPLER CLINICAL HISTORY: Transaminitis TECHNIQUE: Right over quadrant abdominal ultrasound performed. Doppler examination of the abdomen was performed. COMPARISON: US LIVER on DOS: 02/14/24 FINDINGS: The liver measures 14 cm and demonstrates nodular contour. Main portal vein is patent with proper dir ection of flow. The gallbladder is unremarkable. Common bile duct measures 4 mm. The pancreas is obscured. Right kidn ey measures 9.3 cm. No evidence of hydronephrosis or stones. IMPRESSION: 1. Cirrhotic morphology of the liver
[2024-10-13 21:10] VITALS: BP 108/84; PULSE 105; RESP 23; TEMP 98.8; O2SAT 97
[2024-10-13 22:00] VITALS: BP 101/53; PULSE 89; RESP 18; TEMP 98; O2SAT 98
[2024-10-13] MEDS: SACUBITRIL-VALSARTAN 24mg/26mg TAB PO SCH (22:22)
[2024-10-13] MEDS: CARVEDILOL 3.125 MG TAB PO SCH (22:27)
[2024-10-14] VITALS (11 sets, daily range): BP systolic 98–121; BP diastolic 61–82; PULSE 78–91; RESP 15–19; TEMP 97.6–99.6; O2SAT 95–100
[2024-10-14] MEDS: LEVOTHYROXINE SODIUM 112 MCG TAB PO SCH (05:42)
[2024-10-14] MEDS: FUROSEMIDE 40 MG/4 ML VIAL IV SCH (05:42)
[2024-10-14 06:00] LABS: Albumin 3.9 g/dL (3.2-4.8); Anion Gap 7 (5-15); BUN/Creatinine Ratio 21.6 (10.0-20.0); Carbon Dioxide 28 mmol/L (20-31); Chloride 101 mmol/L (98-107); Glucose 90 mg/dL (74-106); Potassium 4.0 mmol/L (3.5-5.1); Sodium 136 mmol/L (136-145); Total Protein 6.2 g/dL (5.7-8.2)
[2024-10-14 06:22] LABS: Hemoglobin 10.4 g/dL (13.5-17.5); Mean Corpuscular Hemoglobin 21.2 pg (28.0-32.0); Nucleated Red Blood Cells % 0.2 %
[2024-10-14 06:23] LABS: Hematocrit 33.1 % (41.0-53.0); Mean Corpuscular Volume 67.6 fL (80.0-100.0)
[2024-10-14 06:25] LABS: Alanine Aminotransferase 2944 U/L (7-40); Alkaline Phosphatase 248 U/L (46-116); Bilirubin, Total 2.4 mg/dL (0.2-1.0); Blood Urea Nitrogen 24 mg/dL (9-23); Calcium 8.1 mg/dL (8.7-10.4)
[2024-10-14] MEDS: cefTRIAXone 1GM/50ML D5W 50 ML IV SCH (10:14)
[2024-10-14] MEDS: EMPAGLIFLOZIN 10 MG TAB PO SCH (10:15)
[2024-10-14 11:39] LABS: Hepatitis B Surface Antigen Negative (Negative); Hepatitis C Antibody Negative (Negative)
--- NOTE | 2024-10-14 17:52 | DVHPN2 ---
Subjective 44-year-old male with a known history of congestive heart failure dilated cardiomyopathy, chronic meth use in the here for chest pain shortness of breaths. 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 Medications Current Medications Medications Dose Ordered Sig/Kristin Route Start Time Stop Time Status Last Admin Dose Admin Nitroglycerin 0.4 mg Q5MINP PRN SL 10/13/24 18:30 Morphine Sulfate 2 mg Q30M PRN IV 10/13/24 18:30 Carvedilol 3.125 mg Q12HR PO 10/13/24 22:00 10/13/24 22:27 3.125 MG Empaglifozin 10 mg DAILY PO 10/14/24 10:00 10/14/24 10:15 10 MG Furosemide 40 mg BIDD IV 10/14/24 06:00 10/14/24 05:42 40 MG Levothyroxine Sodium 112 mcg QAM@0600 PO 10/14/24 06:00 10/14/24 05:42 112 MCG Sacubitril/ Valsartan 1 tab BID PO 10/13/24 22:00 10/14/24 10:15 1 TAB Aspirin 81 mg DAILY PO 10/14/24 10:00 10/14/24 10:15 81 MG Albuterol 2.5 mg Q6HPRN PRN NEB 10/13/24 19:15 Ondansetron HCl 4 mg Q4HP PRN IV 10/13/24 19:15 Ceftriaxone Sodium 50 ml @ 100 mls/hr DAILY@09 IV 10/14/24 09:00 10/14/24 10:59 100 MLS/HR Laboratory Results Laboratory Tests 10/14/24 05:18 Chemistry Test 10/14/24 05:18 Albumin 3.9 g/dL (3.2-4.8) Calcium Level 8.1 mg/dL (8.7-10.4) L Total Protein 6.2 g/dL (5.7-8.2) LFT Test 10/14/24 05:18 Alanine Aminotransferase (ALT) 2944 U/L (7-40) H Alkaline Phosphatase 248 U/L (46-116) H Aspartate Amino Transferase (AST) 2486 U/L (13-40) H Total Bilirubin 2.4 mg/dL (0.2-1.0) H Urinalysis Test 10/13/24 18:52 Urine Color Yellow (Yellow) Urine Clarity Clear (Clear) Urine pH 5.5 (5.0-9.0) Urine Specific [place] 1.009 (1.001-1.035) Urine Protein Trace (Negative) H Urine Ketones Negative (Negative) Urine Blood 1+ /uL (Negative) H Urine Nitrite Negative (Negative) Urine Bilirubin Negative (Negative) Urine Urobilinogen Normal mg/dL (Negative) Urine Leukocyte Esterase Negative /uL (Negative) Urine RBC None seen /hpf (0 - 3) Urine Microscopic WBC < 1 /HPF (0-3) Urine Squamous Epithelial Cells None seen /hpf (<5) Urine Bacteria Few /hpf (None Seen) H Urine Glucose 3+ mg/dL (Normal) H Assessment/Plan Assessment/Plan 44-year-old male with a known history of congestive heart failure with systolic dysfunction with the EF of 50-20%, chronic meth use, noncompliance presented to the hospital with shortness of breaths and chest pain found to have 1. Acute on chronic congestive heart failure exacerbation with systolic dysfunction 2. Cardiomyopathy with the EF of 15-20% 3. Chronic methamphetamine use 4. Noncompliance 5. Transaminitis suspected secondary to congestive cardiomyopathy -right upper quadrant ultrasound, IV diuretics, 2D echo cardiology consultation, compliance teaching, drug cessation counseling. Plan discussed with: Patient My Orders Orders - ALINA GREEN MD Procedure Category Date Status Time Abdomen Limited US 10/14/24 Transmitted 17:48 Date of Service: Oct 14, 2024 Billing Provider: ALINA GREEN MD Common Visit Codes: [id number] INP/OBS CARE(MOD) ALINA GREEN MD Oct 14, 2024 17:52
[2024-10-15] VITALS (7 sets, daily range): BP systolic 108–121; BP diastolic 70–83; PULSE 68–83; RESP 18–20; TEMP 97.7–98.1; O2SAT 95–99
[2024-10-15 07:48] LABS: Hematocrit 38.0 % (41.0-53.0); Hemoglobin 11.7 g/dL (13.5-17.5); Mean Corpuscular Hemoglobin 21.2 pg (28.0-32.0); Mean Corpuscular Volume 69.1 fL (80.0-100.0); Nucleated Red Blood Cells % 0.1 %
[2024-10-15 08:05] LABS: Albumin 4.1 g/dL (3.2-4.8); Anion Gap 9 (5-15); BUN/Creatinine Ratio 23.3 (10.0-20.0); Calcium 9.7 mg/dL (8.7-10.4); Carbon Dioxide 31 mmol/L (20-31); Chloride 100 mmol/L (98-107); Glucose 83 mg/dL (74-106); Magnesium 1.9 mg/dL (1.6-2.6); Potassium 3.8 mmol/L (3.5-5.1); Sodium 140 mmol/L (136-145); Total Protein 6.4 g/dL (5.7-8.2)
[2024-10-15 08:20] LABS: Alanine Aminotransferase 2211 U/L (7-40); Alkaline Phosphatase 247 U/L (46-116); Bilirubin, Total 1.6 mg/dL (0.2-1.0); Blood Urea Nitrogen 27 mg/dL (9-23)
[2024-10-15] MEDS ORDERED: FURO40TA4 PO (14:01)
--- NOTE | 2024-10-15 14:05 | DVHDS2 ---
Discharge Summary Date of Admission Oct 13, 2024 at 18:22 Date of Discharge: Oct 15, 2024 Labs/Diagnostic Data: Laboratory Results Test 10/15/24 06:32 10/13/24 20:25 10/13/24 18:52 10/13/24 17:31 White Blood Count 8.5 10^3/uL (4.4-10.8) Red Blood Count 5.51 10^6/uL (4.5-5.90) Hemoglobin 11.7 g/dL (13.5-17.5) Hematocrit 38.0 % (41.0-53.0) Mean Corpuscular Volume 69.1 fL (80.0-100.0) Mean Corpuscular Hemoglobin 21.2 pg (28.0-32.0) Mean Corpuscular Hemoglobin Concent 30.7 g/dL (32.0-36.0) Red Cell Distribution Width 23.6 % (11.8-14.3) Platelet Count 287 10^3/uL (140-450) Mean Platelet Volume 8.8 fL (6.9-10.8) Neutrophils (%) (Auto) 72.2 % (37.0-80.0) Lymphocytes (%) (Auto) 11.3 % (10.0-50.0) Monocytes (%) (Auto) 12.9 % (0.0-12.0) Eosinophils (%) (Auto) 2.8 % (0.0-7.0) Basophils (%) (Auto) 0.8 % (0.0-2.0) Neutrophils # (Auto) 6.1 10 ^3/uL (1.6-8.6) Lymphocytes # (Auto) 1.0 10 ^3/uL (0.4-5.4) Monocytes # (Auto) 1.1 10 ^3/uL (0-1.3) Eosinophils # (Auto) 0.2 10 ^3/uL (0-0.8) Basophils # (Auto) 0.1 10 ^3/uL (0-0.2) Nucleated Red Blood Cells 0.1 % Sodium Level 140 mmol/L (136-145) Potassium Level 3.8 mmol/L (3.5-5.1) Chloride Level 100 mmol/L (98-107) Carbon Dioxide Level 31 mmol/L (20-31) Anion Gap 9 (5-15) Blood Urea Nitrogen 27 mg/dL (9-23) Creatinine 1.16 mg/dL (0.700-1.30) Glomerular Filtration Rate Calc 80 mL/min (>90) BUN/Creatinine Ratio 23.3 (10.0-20.0) Serum Glucose 83 mg/dL (74-106) Calcium Level 9.7 mg/dL (8.7-10.4) Magnesium Level 1.9 mg/dL (1.6-2.6) Total Bilirubin 1.6 mg/dL (0.2-1.0) Aspartate Amino Transferase (AST) 1025 U/L (13-40) Alanine Aminotransferase (ALT) 2211 U/L (7-40) Alkaline Phosphatase 247 U/L (46-116) Total Protein 6.4 g/dL (5.7-8.2) Albumin 4.1 g/dL (3.2-4.8) Lactic Acid Level 3.1 mmol/L (0.4-2.0) Troponin I High Sensitivity 51 ng/L (</=54) Urine Color Yellow (Yellow) Urine Clarity Clear (Clear) Urine pH 5.5 (5.0-9.0) Urine Specific [place] 1.009 (1.001-1.035) Urine Protein Trace (Negative) Urine Ketones Negative (Negative) Urine Blood 1+ /uL (Negative) Urine Nitrite Negative (Negative) Urine Bilirubin Negative (Negative) Urine Urobilinogen Normal mg/dL (Negative) Urine Leukocyte Esterase Negative /uL (Negative) Urine RBC None seen /hpf (0 - 3) Urine Microscopic WBC < 1 /HPF (0-3) Urine Squamous Epithelial Cells None seen /hpf (<5) Urine Bacteria Few /hpf (None Seen) Urine Glucose 3+ mg/dL (Normal) Urine Opiates Screen Neg (NEGATIVE) Urine Fentanyl Screen Neg (NEGATIVE) Urine Barbiturates Screen Neg (NEGATIVE) Urine Phencyclidine Screen Neg (NEGATIVE) Urine Amphetamines Screen Pos (NEGATIVE) Urine Benzodiazepines Screen Neg (NEGATIVE) Urine Cocaine Screen Neg (NEGATIVE) Urine Cannabinoids Screen Pos (NEGATIVE) Prothrombin Time 18.8 sec (9.3-11.8) Prothrombin Time INR 1.89 (0.9-1.15) Activated Partial Thromboplast Time 32.7 SEC (24.5-34.5) B-Type Natriuretic Peptide 2116.58 pg/mL (0-100) Hepatitis A IgM Antibody Negative Hepatitis B Surface Antigen Negative (Negative) Hepatitis B Core IgM Antibody Negative (Negative) Hepatitis C Antibody Negative (Negative) Other Laboratory Tests 10/15/24 06:32 Brief Hx & Hospital Course: 44-year-old male with a known history of congestive heart failure with systolic dysfunction with the EF of 15-20%, chronic meth use, noncompliance presented to the hospital with shortness of breaths and chest pain found to have acute on chronic congestive heart failure exacerbation with systolic dysfunction. Patient was started on IV diuretics. Patient does have known history of noncompliance with the medication as well as illicit drug use. Patient leg swelling improved patient is currently stable to be discharged. Patient's LFTs are still high although trending down because of congestive cardiomyopathy. Patient was recommended to follow up with the PCP within one week with a repeat CMP to evaluate the liver function tests otherwise come back to ER if there is any abdominal pain nausea and vomiting or any concern. Condition at Discharge: Stable Final Diagnosis/Problems List 44-year-old male with a known history of congestive heart failure with systolic dysfunction with the EF of 15-20%, chronic meth use, noncompliance presented to the hospital with shortness of breaths and chest pain found to have 1. Acute on chronic congestive heart failure exacerbation with systolic dysfunction 2. Cardiomyopathy with the EF of 15-20% 3. Chronic methamphetamine use 4. Noncompliance 5. Transaminitis suspected secondary to congestive cardiomyopathy Discharge Disposition: Home SNF Discharge Will this Physician continue t: No Discharge Instruct/Medications Diet: Cardiac 2g Na,low cholest Activity: No Restrictions, As Tolerated Follow Up/Referral: Follow up with the PCP in one week with a repeat CMP to elevated liver function tests. Follow up with the Cardiology in 1-2 weeks Medications: Lasix as prescribed. Scheduled Aspirin (Aspirin Adult Low Dose), 81 MG PO DAILY Atorvastatin Calcium (Lipitor), 1 TAB PO DAILY Carvedilol (Carvedilol), 1 TAB PO BID, (Reported) Empagliflozin (Jardiance), 10 MG PO DAILY Furosemide (Furosemide), 1 TAB PO DAILY Levothyroxine Sodium (Levothyroxine Sodium), 1 TAB PO DAILY Quetiapine Fumerate (Seroquel), 1 TAB PO QAM, (Reported) Quetiapine Fumerate (Seroquel), 1 TAB PO QPM, (Reported) Sacubitril-Valsartan (Entresto 24-26 mg), 1 TAB PO BID Scheduled PRN Clonazepam (Clonazepam), 1 TAB PO HS PRN for ANXIETY, (Reported) Discontinued Medications Carvedilol (Coreg), 3.125 MG PO BID Empagliflozin (Jardiance), 10 MG PO DAILY Furosemide (Lasix), 40 MG PO DAILY Levothyroxine Sodium (Synthroid Tablet), 1 TAB PO DAILY Sacubitril-Valsartan (Entresto 24-26 mg), 1 TAB PO BID Discharge Statement: "Patient was advised to return to the ER or call 911 if any headaches, dizziness, shortness of breath, chest pain, abdominal pain, bleeding, fevers, or worsening of medical condition. Patient was counseled about treatment plan, medications, possible side effects, patientverbalized understanding. All questions were answered to the best of my ability. This discharge took greater then 30 minutes in planning, reviewing documentation, counseling the patient, and discussing with other team members." ASSESSMENT ASSESSMENT Assessment 44-year-old male with a known history of congestive heart failure with systolic dysfunction with the EF of 15-20%, chronic meth use, noncompliance presented to the hospital with shortness of breaths and chest pain found to have 1. Acute on chronic congestive heart failure exacerbation with systolic dysfunction 2. Cardiomyopathy with the EF of 15-20% 3. Chronic methamphetamine use 4. Noncompliance 5. Transaminitis suspected secondary to congestive cardiomyopathy Date of Service: Oct 15, 2024 Billing Provider: ALINA GREEN MD Common Visit Codes: 37380-XVH/OBS DISCH DAY >30min ALINA GREEN MD Oct 15, 2024 14:05
--- NOTE | 2024-10-17 10:55 | ECG ---
[facility] Test Date: 2024-10-13 Test Time: 16:36:28 Pat Name: YOLY CRUZ Department: ED Room: [address] [place] [address] 5 Gender: M Wide Area Network Engineer: vania : 1980 Requested By: AIMEE TRINH Order Number: [id number] Reading MD: Anastacio Amaya Measurements Intervals [place] Rate: 101 P: 70 NV: 149 QRS: -73 QRSD: 136 T: 91 QT: 386 QTc: 501 Interpretive Statements Sinus tachycardia Right bundle branch block Anterior infarct, old ST elevation, consider inferior injury Electronically Signed On 10-20-2024 18:09:41 PDT by Anastacio Amaya Please click the below link to view image of tracing.
== END 2024-10-15 16:20 | disposition home or self-care (01) | DRG 280 ==
LOC: ER 16:26 → EDBD 16:26 → OVERFLOW 18:22 → TELE-EAST 18:24
PROVIDERS: ADMIT Nurse Practitioner; ATTEND Nurse Practitioner
DX: I11.0 Hypertensive heart disease with heart failure (principal); I50.23 Acute on chronic systolic (congestive) heart failure; I21.A1 Myocardial infarction type 2; R74.01 Elevation of levels of liver transaminase levels; J44.9 Chronic obstructive pulmonary disease, unspecified; F15.10 Other stimulant abuse, uncomplicated; D64.9 Anemia, unspecified; I42.0 Dilated cardiomyopathy; F17.210 Nicotine dependence, cigarettes, uncomplicated; Z91.148 Patient's other noncompliance with medication regimen for other reason; Z79.899 Other long term (current) drug therapy
CPT/HCPCS: 36415; 71045; 76705; 80053; 80074; 80307; 81001; 83605; 83735; 83880; 84484; 85025; 85610; 85730; 87040; 93005; 96374; 99291; G0378

== ENCOUNTER 2025-03-19 17:31 | Inpatient (IN) | payer OTHER, MEDICAID ==
[~2025-03-19] VITALS: Ht 175.3 cm; Wt 98.8 kg
[~2025-03-19 17:31] MED LIST changes: -CARV-214 PO; -FURO1TAB31 PO; -LEVO-849 PO
--- NOTE | 2025-03-19 18:45 | ED.PDOC ---
History of Present Illness HPI Comments 44-year-old, obese male presents with chief complaint of shortness of breaths. Patient endorses on 3 week history of progressively worsening dyspnea. He comments on running out/losing of all of his prescribed medications, recently. Denies any chest pain, lower extremity swelling, or further acute symptoms. Significant history for CHF, COPD, HTN, and polysubstance abuse. Patient comments homeless methamphetamine usage being yesterday. Chief Complaint: Shortness of Breath Time Seen by MD: 18:25 Primary Care Provider: n/a Reviewed Notes: Nurses Notes, Medications, Allergies Allergies: Coded Allergies: NO KNOWN ALLERGIES (Unverified , 01/11/11) Home Meds Active Scripts Furosemide (Furosemide) 40 Mg Tab, 1 TAB PO DAILY for 60 Days, #60 TAB 5 Refills Prov:ALINA GREEN MD 10/15/24 Aspirin (Aspirin Adult Low Dose) 81 Mg Tab, 81 MG PO DAILY, #90 TAB Prov:DERIAN LANDIN MD 04/28/24 Atorvastatin Calcium (Lipitor) 20 Mg Tab, 1 TAB PO DAILY, #90 TAB 1 Refill Prov:DERIAN LANDNI MD 04/28/24 Levothyroxine Sodium (Levothyroxine Sodium) 112 Mcg Tab, 1 TAB PO DAILY for 30 Days, #30 TAB 5 Refills Prov:CASPER MONCADA RESIDENT 02/15/24 Empagliflozin (Jardiance) 10 Mg Tab, 10 MG PO DAILY for 30 Days, #30 TAB Prov:CASPER MONCADA RESIDENT 02/15/24 Sacubitril-Valsartan (Entresto 24-26 mg) 1 Tab Tab, 1 TAB PO BID for 30 Days, #60 TAB Prov:CASPER MONCADA RESIDENT 02/15/24 Reported Medications Carvedilol (Carvedilol) 3.125 Mg Tab, 1 TAB PO BID for 30 Days, #60 04/26/24 Quetiapine Fumerate (Seroquel) 400 Mg Tab, 1 TAB PO QPM for 30 Days, #30 02/15/24 Quetiapine Fumerate (Seroquel) 200 Mg Tab, 1 TAB PO QAM for 30 Days, #30 02/15/24 Clonazepam (Clonazepam) 0.5 Mg Tab, 1 TAB PO HS PRN for ANXIETY for 30 Days, #30 02/14/24 Information Source: Patient Mode of Arrival: Wheelchair Severity: Moderate Timing: Weeks Duration: Since onset Prehospital treatment: None Past Medical History PAST MEDICAL HISTORY: CHF, COPD, HTN Surgical History: Denies all surgeries Family History Family History: Reviewed,noncontributory to illness, Unknown Social History Smoker: Cigarettes, Other Alcohol: Denies ETOH Use Drugs: Marijuana, Methamphetamine Lives In: Home All Other Systems: Reviewed and Negative (Comprehensive review of systems are negative unless stated in HPI) Physical Exam General Appearance: No Apparent Distress, Obese HEENT: Normal ENT Inspection, Pharynx Normal, TMs Normal Neck: Full Range of Motion, Non-Tender, Normal, Normal Inspection Respiratory: Chest Non-Tender, Lungs Clear, No Accessory Muscle Use, No Respiratory Distress, Normal Breath Sounds Cardiovascular: No Edema, No JVD, No Murmur, No Gallop, Normal Peripheral Pulses, Tachycardia, Other (Regular rhythm) Breast Exam: Deferred Gastrointestinal: No Organomegaly, Non Tender, No Pulsatile Mass, Normal Bowel Sounds, Soft Genitalia: Deferred Pelvic: Deferred Rectal: Deferred Extremities: No calf tenderness, Normal capillary refill, Normal inspection, Normal range of motion, Non-tender, No pedal edema Musculoskeletal : Apperance: Normal Neurologic: Alert, metal neutralizer II-XII nml as Tested, No Motor Deficits, Normal Affect, Normal Mood, No Sensory Deficits Cerebellar Function: Normal Reflexes: Normal Skin: Dry, Normal Color, Warm Lymphatic: No Adenopathy Was a procedure done? Was a procedure done?: No EKG EKG : Pulse Rate (adult): 105 [place]: Normal Cardiac Rhythm: ST Block: None Hypertrophy: None ST: Normal Differential Dx Considerations may include: Acute CHF/COPD exacerbation, CA, PE, ACS, URI, pneumonia, substance abuse/dependency, among others X-Ray, Labs, Meds, VS Vital Signs Date Time Temp Pulse Resp B/P (MAP) Pulse Ox O2 Delivery O2 Flow Rate FiO2 03/19/25 21:00 24 93 Room Air* 0 21 21 03/19/25 20:39 20 97 Room Air* 0 21 03/19/25 20:39 111 03/19/25 20:32 98.2 111 20 139/92 (108) 97 98.2 03/19/25 18:45 105 03/19/25 17:41 105 03/19/25 17:33 98.0 105 22 148/83 98 98.0 Lab Test 03/19/25 20:24 03/19/25 20:08 03/19/25 19:10 Range/Units Urine Opiates Screen Pending Urine Fentanyl Screen Pending Urine Barbiturates Screen Pending Urine Phencyclidine Screen Pending Urine Amphetamines Screen Pending Urine Benzodiazepines Screen Pending Urine Cocaine Screen Pending Urine Cannabinoids Screen Pending Troponin I High Sensitivity 99 *H 90 *H </=54 ng/L White Blood Count 11.1 H 4.4-10.8 10^3/uL Red Blood Count 4.80 4.5-5.90 10^6/uL Hemoglobin 11.6 L 13.5-17.5 g/dL Hematocrit 38.0 L 41.0-53.0 % Mean Corpuscular Volume 79.1 L 80.0-100.0 fL Mean Corpuscular Hemoglobin 24.2 L 28.0-32.0 pg Mean Corpuscular Hemoglobin Concent 30.6 L 32.0-36.0 g/dL Red Cell Distribution Width 20.1 H 11.8-14.3 % Platelet Count 308 140-450 10^3/uL Mean Platelet Volume 8.3 6.9-10.8 fL Neutrophils (%) (Auto) 83.5 H 37.0-80.0 % Lymphocytes (%) (Auto) 3.8 L 10.0-50.0 % Monocytes (%) (Auto) 12.3 H 0.0-12.0 % Eosinophils (%) (Auto) 0.1 0.0-7.0 % Basophils (%) (Auto) 0.3 0.0-2.0 % Neutrophils # (Auto) 9.3 H 1.6-8.6 10 ^3/uL Lymphocytes # (Auto) 0.4 0.4-5.4 10 ^3/uL Monocytes # (Auto) 1.4 H 0-1.3 10 ^3/uL Eosinophils # (Auto) 0 0-0.8 10 ^3/uL Basophils # (Auto) 0 0-0.2 10 ^3/uL Nucleated Red Blood Cells 0.2 % Sodium Level 137 136-145 mmol/L Potassium Level 5.1 3.5-5.1 mmol/L Chloride Level 100 98-107 mmol/L Carbon Dioxide Level 17 L 20-31 mmol/L Anion Gap 20 H 5-15 Blood Urea Nitrogen 25 H 9-23 mg/dL Creatinine 1.06 0.700-1.30 mg/dL Glomerular Filtration Rate Calc 89 >90 mL/min BUN/Creatinine Ratio 23.6 H 10.0-20.0 Serum Glucose 101 74-106 mg/dL Calcium Level 9.4 8.7-10.4 mg/dL B-Type Natriuretic Peptide 534.58 0-100 pg/mL Current Medications Medications (Trade) Dose Ordered Sig/Kristin Route Start Time Stop Time Status Last Admin Aspirin 324 mg ONCE ONCE PO 03/19/25 20:00 03/19/25 20:01 DC 03/19/25 20:33 Albuterol (Ventolin Medneb) 5 mg ONCE ONCE NEB 03/19/25 20:45 03/19/25 20:46 DC 03/19/25 21:00 [place] [id number] Ph: [phone] DIAGNOSTIC IMAGING Diagnostic Imaging Report : [id number] Signed PATIENT: YOLY CRUZ ACCT: [id number] UNIT: [id number] : 1980 LOC: ER ROOM / BED: / AGE / SEX: 44 / M ADM STATUS: REG ER SERVICE 24 ORDERING PHYSICIAN: BIBI VINCENT MD PROCEDURE(s): CXR1 - CHEST XRAY 1 VIEW REASON: sob ORDER NUMBER(s): [id number], ACCESSION NUMBER(s): [id number] CHEST RADIOGRAPH Indication: sob Technique: Single frontal view of the chest was obtained Comparison: XY CHEST PORTABLE on DOS: 10/13/24, XY CHEST PORTABLE on DOS: 04/26/24, XY CHEST PORTABLE on DOS: 02/13/24, XY CHEST TWO VIEWS ROUTINE on DOS: 12/07/23 FINDINGS/IMPRESSION: The lungs are clear. The cardiomediastinal silhouette is prominent, likely accentuated by technique. No pleural effusion or pneumothorax. No acute osseous abnormality. ATED BY: NATHALY AGARWAL MD DICTATED DATE/TIME: 03/19/251916 SIGNED BY: NATHALY AGARWAL MD SIGNED DATE/TIME: 03/19/251916 CC: Time of 1ST Reevaluation: 18:55 Reevaluation 1ST: Unchanged Patient Education/Counseling: Diagnosis, Treatment, Other (Need for admission) Family Education/Counseling: No Family Present Comments This is a patient with known coronary artery disease, CHF, methamphetamine abuse. Patient presents with shortness of breath. He is not in heart failure. However his troponin is elevated. He admittedly recently did use methamphetamine again. Patient he will be admitted for NSTEMI and methamphetamine abuse Additional Information Previous visits reviewed: April 26, 2024 and October 13, 2024 encounters for CHF exacerbation Labs ordered: Drug screen, troponin, BNP, BMP, CBC, EKG Images reviewed: Chest x-ray Additional historian is interviewed: n/a SEPSIS Sepsis Screen Date sepsis recognized/suspect: Mar 19, 2025 Time Sepsis recognized/suspect: 1734 Recent Procedure: No On Antibiotic Therapy: No Respiratory Rate >20: Yes Heart Rate >90: Yes Temp<36 C (96.8 F) or >38.3 C: No SBP <90 or MAP <65 mmHG: No New Acute Mental Status Change: No Is the patient on CPAP, BIPAP,: No Physician Orders Electrocardigram (03/19/25 17:47) Chest Xray 1 View (03/19/25 18:25) Troponin-I Hs (03/19/25 21:25) Drug Screen (03/19/25 18:25) Ct Angio Chest Contrast (03/19/25 19:57) Vital Signs Date Time Temp Pulse Resp B/P (MAP) Pulse Ox O2 Delivery O2 Flow Rate FiO2 03/19/25 21:00 24 93 Room Air* 0 21 21 03/19/25 20:39 20 97 Room Air* 0 21 03/19/25 20:39 111 03/19/25 20:32 98.2 111 20 139/92 (108) 97 98.2 03/19/25 18:45 105 03/19/25 17:41 105 03/19/25 17:33 98.0 105 22 148/83 98 98.0 Laboratory Tests Test 03/19/25 19:10 White Blood Count 11.1 10^3/uL (4.4-10.8) H Medications Medications Dose Ordered Sig/Kristin Route Start Time Stop Time Status Last Admin Dose Admin Albuterol 5 mg ONCE ONCE NEB 03/19/25 20:45 03/19/25 20:46 DC 03/19/25 21:00 Aspirin 324 mg ONCE ONCE PO 03/19/25 20:00 03/19/25 20:01 DC 03/19/25 20:33 Departure 1 Departure Time of Disposition: 22:07 Impression: Primary Impression: NSTEMI (non-ST elevated myocardial infarction) Additional Impression: Methamphetamine abuse Disposition: ADMITTED INPATIENT Admit to: [facility] Condition: Serious Discharged With: Self Critical Care Note Critical Care Time?: Yes (55 min-critical care time only) Critical care comment: Due to concerns for patients condition deteriorating, the care required my highest level of attention and readiness to intervene. I assessed the patient, reviewed the medical records, ordered the appropriate tests and treatments, then reassessed for results and responsiveness. I communicated with medical personnel and consultants and formulated a plan of care. Total critical care time excludes any procedures Stability Stability form required: No Heart Score Heart Score: Heart Score Response (Comments) Value History Moderate Suspicious 1 EKG Normal 0 Age <45 0 Risk Factors >3 or Hx ASHD 2 Troponin >3 x's Normal limit 2 Total 5 I personally scribed for BIBI VINCENT MD ([email or web address]) on 03/19/25 at 18:45. Electronically submitted by Tal Sandoval ([email or web address]). I personally scribed for BIBI VINCENT MD ([email or web address]) on 03/19/25 at 18:47. Electronically submitted by Tal Sandoval ([email or web address]). I personally scribed for BIBI VINCENT MD ([email or web address]) on 03/19/25 at 20:05. Electronically submitted by Tal Sandoval ([email or web address]). BIBI VINCENT MD Mar 19, 2025 18:45
--- NOTE | 2025-03-19 19:19 | DVH ---
CHEST RADIOGRAPH Indication: sob Technique: Single frontal view of the chest was obtained Comparison: XY CHEST PORTABLE on DOS: 10/13/24, XY CHEST PORTABLE on DOS: 04/26/24, XY CHEST PORTABLE on DOS: 02/13/24, XY CHEST TWO VIEWS ROUTINE on DOS: 12/07/23 FINDINGS/IMPRESSION: The lungs are clear. The cardiomediastinal silhouette is prominent, likely accentuated by technique. No pleural effusion or pneumothorax. No acute osseous abnormality.
[2025-03-19 19:26] LABS: Hematocrit 38.0 % (41.0-53.0); Hemoglobin 11.6 g/dL (13.5-17.5); Mean Corpuscular Hemoglobin 24.2 pg (28.0-32.0); Mean Corpuscular Volume 79.1 fL (80.0-100.0); Nucleated Red Blood Cells % 0.2 %
[2025-03-19 19:27] LABS: Chloride 100 mmol/L (98-107); Potassium 5.1 mmol/L (3.5-5.1); Sodium 137 mmol/L (136-145)
[2025-03-19 19:28] LABS: Anion Gap 20 (5-15)
[2025-03-19 19:29] LABS: Calcium 9.4 mg/dL (8.7-10.4)
[2025-03-19 19:33] LABS: Glucose 101 mg/dL (74-106)
[2025-03-19 19:34] LABS: BUN/Creatinine Ratio 23.6 (10.0-20.0); Blood Urea Nitrogen 25 mg/dL (9-23); Carbon Dioxide 17 mmol/L (20-31)
[2025-03-19] MEDS: IOHEXOL 350 MG/ML 100ML IJ ONE (20:45)
[2025-03-19] MEDS: ALBUTEROL SULF 2.5 MG/0.5ML(0.5%) NEB SOLN NEB ONE (21:00)
--- NOTE | 2025-03-19 22:20 | DVH ---
EXAM: CT CT ANGIO CHEST CONTRAST History: r/o PE Comparison Study: XY CHEST XRAY 1 VIEW on DOS: 03/19/25, XY CHEST PORTABLE on DOS: 10/13/24, XY CHEST PORTABLE on DOS: 04/26/24, CT CT ANGIO CHEST CONTRAST on DOS: 02/14/24, XY CHEST PORTABLE on DOS: 02/13/24 TECHNIQUE: A digital slitter and cutter operator image was obtained. During the uneventful, intravenous administration of contrast material, multislice data acquisition was obtained through the chest. 3-D postprocessing is performed by technologist including MIP imaging Radiation Dose : CTDI vol 26.8 mGy, DLP 1075.7 mGy*cm. Findings: Evaluation is degraded by respiratory motion. Lungs: There is mild mosaic attenuation most pronounced within the lower lobes. Pleura: Unremarkable Heart/Great vessels: There is cardiomegaly. There is no pericardial effusion. No CT evidence of acute pulmonary embolism. The aorta is unremarkable. There is reflux of contrast into the hepatic veins and IVC. Mediastinum: Borderline mediastinal nodes. Soft tissues/Bones: Unremarkable Upper abdomen: Redemonstrated calcification along the periphery of the spleen. Impression: 1. No CT evidence of acute pulmonary embolism. 2. Nonspecific mild mosaic attenuation within the lower lobes, possibly reflecting air trapping or an infectious/inflammatory process in the appropriate clinical setting. 3. Borderline mediastinal nodes, nonspecific. 4. Reflux of contrast into the hepatic veins and IVC may reflect an element of right heart failure.
[2025-03-19 22:21] LABS: Cannabinoid Screen, Urine Pos (NEGATIVE)
[2025-03-19 22:23] LABS: Amphetamine Screen, Urine Pos (NEGATIVE); Barbiturate Scree,Urine Neg (NEGATIVE); Benzodiazephine Screen, Urine Neg (NEGATIVE); Cocaine Screen, Urine Neg (NEGATIVE); Opiate Scree,Urine Neg (NEGATIVE); Phencyclidine Screen, Urine Neg (NEGATIVE)
--- NOTE | 2025-03-19 23:01 | DVHHPRES ---
History of Present Illness Resident Creating Document: KRYSTLE PRICE RESIDENT History of Present Illness Juan Madison, a 44-year-old male with a previous history of systolic heart failure with ejection fraction 10-15%, COPD not on home oxygen, hypertension, polysubstance abuse including methamphetamine presented to the ER with the complaints of shortness of breaths. The patient reports he was on Jardiance and some other heart failure medications which he ran out of due to some complications related to pharmacy. His shortness of breaths increases on lying down and improves on sitting up, he also reports having paroxysmal nocturnal dyspnea. The patient also reports having sharp chest pain increases with br eathing. He denies any fever, urinary symptoms, sick contacts or recent travel history. He reports having cough since last 2 weeks, with yellowish sputum production. No hemoptysis. He has been feeling nauseous. He reports having mild leg swelling. Past medical history: Bipolar disorder Past surgical history: Tonsillectomy at the age of 10 Allergies: None Home medications: Jardiance, clozapine, Seroquel. Smoking: Evaluate 7.5 pack years. Alcohol: 1 pt every other week. Marijuana methamphetamine: Active use, patient tried to quit. Code status: Full code Review of Systems Allergies: Coded Allergies: NO KNOWN ALLERGIES (Unverified , 01/11/11) Medications Current Medications Medications Dose Ordered Sig/Kristin Route Start Time Stop Time Status Last Admin Dose Admin Ceftriaxone Sodium 50 ml @ 100 mls/hr DAILY@09 IV 03/22/25 09:00 Doxycycline Hyclate 100 ml @ 50 mls/hr Q12HR IV 03/20/25 10:00 Furosemide 40 mg BIDD IV 03/20/25 06:00 Exam Vital Signs Vital Signs Date Time Temp Pulse Resp B/P (MAP) Pulse Ox O2 Delivery O2 Flow Rate FiO2 03/19/25 21:00 24 93 Room Air* 0 21 21 03/19/25 20:39 111 03/19/25 20:32 98.2 139/92 (108) 98.2 Exam Pt is lying on bed General Appearance: Alert, Oriented X3, Cooperative, Mild distress HEENT: Atraumatic, Mucous membranes moist/pink Respiratory: Bilateral basilar crackles, Normal air movement, No added sounds Cardiovascular: Regular rate, Normal S1, Normal S2, No murmurs Abdominal/ : Active bowel sounds, Soft, no distention, no tenderness Extremities: Trace leg edema, Normal pulses, No tenderness/swelling Skin: No Significant rash, except past surgical scars Neuro: Normal speech, sensorimotor deficits none Psych/Mental Status: Mental status NL, Mood NL Nurse was there as back shoe cutter during examination Labs/Xrays Labs Test 03/19/25 22:03 03/19/25 20:24 03/19/25 19:10 Range/Units Troponin I High Sensitivity 81 *H </=54 ng/L Urine Opiates Screen Neg NEGATIVE Urine Fentanyl Screen Neg NEGATIVE Urine Barbiturates Screen Neg NEGATIVE Urine Phencyclidine Screen Neg NEGATIVE Urine Amphetamines Screen Pos NEGATIVE Urine Benzodiazepines Screen Neg NEGATIVE Urine Cocaine Screen Neg NEGATIVE Urine Cannabinoids Screen Pos NEGATIVE White Blood Count 11.1 H 4.4-10.8 10^3/uL Red Blood Count 4.80 4.5-5.90 10^6/uL Hemoglobin 11.6 L 13.5-17.5 g/dL Hematocrit 38.0 L 41.0-53.0 % Mean Corpuscular Volume 79.1 L 80.0-100.0 fL Mean Corpuscular Hemoglobin 24.2 L 28.0-32.0 pg Mean Corpuscular Hemoglobin Concent 30.6 L 32.0-36.0 g/dL Red Cell Distribution Width 20.1 H 11.8-14.3 % Platelet Count 308 140-450 10^3/uL Mean Platelet Volume 8.3 6.9-10.8 fL Neutrophils (%) (Auto) 83.5 H 37.0-80.0 % Lymphocytes (%) (Auto) 3.8 L 10.0-50.0 % Monocytes (%) (Auto) 12.3 H 0.0-12.0 % Eosinophils (%) (Auto) 0.1 0.0-7.0 % Basophils (%) (Auto) 0.3 0.0-2.0 % Neutrophils # (Auto) 9.3 H 1.6-8.6 10 ^3/uL Lymphocytes # (Auto) 0.4 0.4-5.4 10 ^3/uL Monocytes # (Auto) 1.4 H 0-1.3 10 ^3/uL Eosinophils # (Auto) 0 0-0.8 10 ^3/uL Basophils # (Auto) 0 0-0.2 10 ^3/uL Nucleated Red Blood Cells 0.2 % Sodium Level 137 136-145 mmol/L Potassium Level 5.1 3.5-5.1 mmol/L Chloride Level 100 98-107 mmol/L Carbon Dioxide Level 17 L 20-31 mmol/L Anion Gap 20 H 5-15 Blood Urea Nitrogen 25 H 9-23 mg/dL Creatinine 1.06 0.700-1.30 mg/dL Glomerular Filtration Rate Calc 89 >90 mL/min BUN/Creatinine Ratio 23.6 H 10.0-20.0 Serum Glucose 101 74-106 mg/dL Calcium Level 9.4 8.7-10.4 mg/dL B-Type Natriuretic Peptide 534.58 0-100 pg/mL SEPSIS Sepsis Screen Date sepsis recognized/suspect: Mar 19, 2025 Time Sepsis recognized/suspect: 2031 Recent Procedure: No On Antibiotic Therapy: No Respiratory Rate >20: No Heart Rate >90: Yes Temp<36 C (96.8 F) or >38.3 C: No SBP <90 or MAP <65 mmHG: No New Acute Mental Status Change: No Is the patient on CPAP, BIPAP,: No Physician Orders Electrocardigram (03/19/25 17:47) Chest Xray 1 View (03/19/25 18:25) Ct Angio Chest Contrast (03/19/25 19:57) Admit (03/19/25 22:43) Allergies (03/19/25 22:43) Code Status (03/19/25 22:43) Complete Blood Count (03/20/25 04:00) Comprehensive Metabolic Panel (03/20/25 04:00) Cardiac Diet-2gna,Lofat,Lochol (03/20/25 Breakfast) Sequential Compression Device (03/19/25 ) Notify Md Of Changes From Base (03/19/25 22:43) Cook Apprentice 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 (03/19/25 22:43) Emergency Dysrhythmia Protocol (03/19/25 22:43) Rhythm Strips Once Every Shift (03/19/25 22:43) Oxygen By Nasal Cannula (03/19/25 22:43) Stat Ekg For Chest Pain (03/19/25 22:43) Lactic Acid W/ Reflex Order (03/19/25 22:43) Ceftriaxone 1gm/50ml (Rocephin) (03/19/25 22:45) Doxycycline 100mg/100ml (Vibramycin) (03/19/25 22:45) Ceftriaxone 1gm/50ml (Rocephin) (03/22/25 09:00) Hepatic Panel (03/19/25 22:52) Furosemide Injection (Lasix Injection) (03/19/25 23:00) Furosemide Injection (Lasix Injection) (03/20/25 06:00) Covid19 Antigen Anitha (03/19/25 ) Rapid Influenza A&B (03/19/25 22:52) Doxycycline 100mg/100ml (Vibramycin) (03/20/25 10:00) Vital Signs Date Time Temp Pulse Resp B/P (MAP) Pulse Ox O2 Delivery O2 Flow Rate FiO2 03/19/25 21:00 24 93 Room Air* 0 21 21 03/19/25 20:39 20 97 Room Air* 0 21 03/19/25 20:39 111 03/19/25 20:32 98.2 111 20 139/92 (108) 97 98.2 03/19/25 18:45 105 03/19/25 17:41 105 03/19/25 17:33 98.0 105 22 148/83 98 98.0 Laboratory Tests Test 03/19/25 19:10 White Blood Count 11.1 10^3/uL (4.4-10.8) H Medications Medications Dose Ordered Sig/Kristin Route Start Time Stop Time Status Last Admin Dose Admin Albuterol 5 mg ONCE ONCE NEB 03/19/25 20:45 03/19/25 20:46 DC 03/19/25 21:00 5 MG Aspirin 324 mg ONCE ONCE PO 03/19/25 20:00 03/19/25 20:01 DC 03/19/25 20:33 324 MG Ceftriaxone Sodium 50 ml @ 100 mls/hr ONCE ONCE IV 03/19/25 22:45 03/19/25 23:14 03/19/25 23:00 100 MLS/HR Assessment/Plan Assessment/Plan Acute on chronic systolic heart failure, ejection fraction 10-15% CT chest: No acute pulmonary embolism, inflammatory process in the lower lobes, borderline mediastinal nodes, possible right heart failure CXR: Lungs clear, cardiomediastinal silhouette is prominent. -injection Lasix -GDMT: Carvedilol, Empagliflozin, sacubitril valsartan -Aspirin -Atorvastatin Polysubstance abuse Counseled regarding cessation for more olivia 14 minutes GI prophylaxis: Pantoprazole DVT prophylaxis: SCDs Diet: Cardiac Goals of care discussed with the patient for more than 27 minutes: Full code status Case discussed with Dr. Vitale, patient and RN Plan discussed with: Patient, Other (RN) My Orders Orders - KRYSTLE PRICE RESIDENT Procedure Category Date Status Time Admit ADMIT 03/19/25 Transmitted 22:43 Allergies CHAPITO 03/19/25 In Process 22:43 Code Status CODE 03/19/25 Transmitted 22:43 Complete Blood Count LAB 03/20/25 Verified 04:00 Comprehensive LAB 03/20/25 Verified Metabolic Panel 04:00 Cardiac DIET 03/20/25 Transmitted Diet-2gna,Lofat,Lochol Breakfast Sequential CHAPITO 03/19/25 In Process Compression Device Notify Md Of Changes CHAPITO 03/19/25 In Process From Base 22:43 Cook Apprentice For [employer] [facility] 03/19/25 In Process 24 Hours 22:43 Emergency Dysrhythmia [facility] 03/19/25 In Process Protocol 22:43 Rhythm Strips Once [facility] 03/19/25 In Process Every Shift 22:43 Oxygen By Nasal RT 03/19/25 Transmitted Cannula 22:43 Stat Ekg For Chest CHAPITO 03/19/25 In Process Pain 22:43 Lactic Acid W/ Reflex LAB 03/19/25 Logged Order 22:43 Ceftriaxone 1gm/50ml PHA 03/19/25 In Process (Rocephin) 22:45 Doxycycline PHA 03/19/25 In Process 100mg/100ml 22:45 Ceftriaxone 1gm/50ml PHA 03/22/25 In Process (Rocephin) 09:00 Hepatic Panel LAB 03/19/25 Logged 22:52 Furosemide Injection PHA 03/19/25 In Process (Lasix Injection) 23:00 Furosemide Injection PHA 03/20/25 In Process (Lasix Injection) 06:00 Covid19 Antigen Anitha LAB 03/19/25 Logged Rapid Influenza A&B LAB 03/19/25 Logged 22:52 Doxycycline PHA 03/20/25 In Process 100mg/100ml 10:00 Visit Coding STANDARD RES Billing Provider: PAOLA VITALE MD Date of Service if different f: Mar 19, 2025 KRYSTLE PRICE Mar 19, 2025 23:01
[2025-03-19 23:28] LABS: Albumin 4.7 g/dL (3.2-4.8); Total Protein 7.2 g/dL (5.7-8.2)
[2025-03-19 23:33] LABS: Alkaline Phosphatase 183 U/L (46-116); Bilirubin, Direct 2.1 mg/dL (<0.3); Bilirubin, Total 5.5 mg/dL (0.2-1.0)
[2025-03-19 23:36] LABS: Lactic Acid w/Reflex 4.9 mmol/L (0.4-2.0)
[2025-03-19 23:39] LABS: Alanine Aminotransferase 3589 U/L (7-40)
[2025-03-20] VITALS (11 sets, daily range): BP systolic 108–136; BP diastolic 69–84; PULSE 85–116; RESP 16–24; TEMP 97.4–98.7; O2SAT 93–100
[2025-03-20] MEDS: DOXYCYCLINE 100MG/100ML 100 ML IV ONE (00:07)
[2025-03-20] MEDS: FUROSEMIDE 40 MG/4 ML VIAL IV ONE (00:09)
[2025-03-20 00:58] LABS: COVID19 ANTIGEN SOFIA FIA NEGATIVE (NEGATIVE)
[2025-03-20 01:36] LABS: Anion Gap 17 (5-15); BUN/Creatinine Ratio 22.6 (10.0-20.0); Calcium 9.6 mg/dL (8.7-10.4); Carbon Dioxide 20 mmol/L (20-31); Chloride 101 mmol/L (98-107); Potassium 4.6 mmol/L (3.5-5.1); Sodium 138 mmol/L (136-145); Total Protein 7.7 g/dL (5.7-8.2)
[2025-03-20 01:38] LABS: Albumin 4.8 g/dL (3.2-4.8); Alkaline Phosphatase 193 U/L (46-116); Bilirubin, Total 5.1 mg/dL (0.2-1.0); Blood Urea Nitrogen 26 mg/dL (9-23); Glucose 130 mg/dL (74-106)
[2025-03-20 01:50] LABS: Alanine Aminotransferase 4675 U/L (7-40)
[2025-03-20 03:59] LABS: Hematocrit 38.4 % (41.0-53.0); Hemoglobin 12.2 g/dL (13.5-17.5); Mean Corpuscular Hemoglobin 25.0 pg (28.0-32.0); Mean Corpuscular Volume 78.7 fL (80.0-100.0); Nucleated Red Blood Cells % 0.3 %
[2025-03-20] MEDS ORDERED: clonazePAM 0.5 MG TAB PO PRN (04:00)
[2025-03-20] MEDS: PANTOPRAZOLE 40 MG TAB PO SCH (05:16)
[2025-03-20] MEDS: ASPirin-EC 81 mg tab PO SCH (05:16)
[2025-03-20] MEDS: SACUBITRIL-VALSARTAN 24mg/26mg TAB PO SCH (05:16)
[2025-03-20] MEDS: FUROSEMIDE 40 MG/4 ML VIAL IV SCH (05:16)
[2025-03-20] MEDS: EMPAGLIFLOZIN 10 MG TAB PO SCH (05:17)
[2025-03-20] MEDS: CARVEDILOL 3.125 MG TAB PO SCH (05:17)
[2025-03-20] MEDS: LEVOTHYROXINE SODIUM 112 MCG TAB PO SCH (05:20)
[2025-03-20] MEDS: ATORVASTATIN 20 MG TAB PO SCH (05:20)
[2025-03-20] MEDS ORDERED: FUROSEMIDE 40 MG/4 ML VIAL IV SCH (05:30)
[2025-03-20] MEDS: SODIUM CHLORIDE 0.9% 500 ML IV ONE (05:44)
[2025-03-20] MEDS: ALBUTEROL SULF 2.5 MG/0.5ML(0.5%) NEB SOLN NEB ONE (06:38)
[2025-03-20] MEDS: IPRATROPIUM BROM 0.5 MG/2.5ML INH SOL NEB ONE (06:40)
[2025-03-20 07:52] LABS: Lactic Acid w/Reflex 3.8 mmol/L (0.4-2.0)
--- NOTE | 2025-03-20 08:56 | ECG ---
[facility] Test Date: 2025-03-20 Test Time: 00:37:14 Pat Name: YOLY CRUZ Department: ED Room: 0212T Gender: M Dry Wall Plasterer: : 1980 Requested By: MELISSA MCLEOD Order Number: [id number] Reading MD: nAastacio Amaya Measurements Intervals [place] Rate: 110 P: 77 NH: 154 QRS: -64 QRSD: 143 T: 106 QT: 359 QTc: 486 Interpretive Statements Sinus tachycardia Probable left atrial enlargement RBBB and LAFB Abnormal T, consider ischemia, lateral leads Electronically Signed On 03-23-2025 19:18:53 PST by Anastacio Amaya Please click the below link to view image of tracing.
[2025-03-20] MEDS ORDERED: FUROSEMIDE 40 MG TAB PO SCH (10:00)
[2025-03-20] MEDS: DOXYCYCLINE 100MG/100ML 100 ML IV SCH (10:45)
[2025-03-20] MEDS: IPRATROPIUM BROM 0.5 MG/2.5ML INH SOL NEB SCH (11:09)
[2025-03-20] MEDS: ALBUTEROL SULF 2.5 MG/0.5ML(0.5%) NEB SOLN NEB SCH (11:09)
--- NOTE | 2025-03-20 14:28 | DVHPN2 ---
Subjective Was admitted for SOB Changes from previous H/P or p: Changes Objective Vitals Vital Signs Date Time Temp Pulse Resp B/P (MAP) Pulse Ox O2 Delivery O2 Flow Rate FiO2 03/20/25 12:39 97.8 95 20 116/69 (85) 98 97.8 03/20/25 11:00 Nasal Cannula* 2 28 Intake/Output Intake and Output 03/20/25 07:00 Intake Total 150 ml Balance 150 ml Intake IV Total 150 ml General Appearance: Alert, Oriented X3, Cooperative, No acute distress Lungs: Clear to auscultation, Normal air movement Cardiovascular: Regular rate, Normal S1, Normal S2, No murmurs Abdomen: Normal bowel sounds, Soft, No tenderness Extremities: Other (2+ edema B) Medications Current Medications Medications Dose Ordered Sig/Kristin Route Start Time Stop Time Status Last Admin Dose Admin Ceftriaxone Sodium 50 ml @ 100 mls/hr DAILY@09 IV 03/22/25 09:00 Doxycycline Hyclate 100 ml @ 50 mls/hr Q12HR IV 03/20/25 10:00 03/20/25 10:45 50 MLS/HR Aspirin 81 mg DAILY PO 03/20/25 10:00 03/20/25 05:16 81 MG Atorvastatin Calcium 20 mg DAILY PO 03/20/25 10:00 03/20/25 05:20 20 MG Carvedilol 3.125 mg BID PO 03/20/25 10:00 03/20/25 05:17 3.125 MG Clonazepam 0.5 mg QHSP PRN PO 03/20/25 04:00 Empaglifozin 10 mg DAILY PO 03/20/25 10:00 03/20/25 05:17 10 MG Levothyroxine Sodium 112 mcg QAM PO 03/20/25 07:00 03/20/25 05:20 112 MCG Quetiapine Fumarate 200 mg QAM PO 03/20/25 07:00 03/20/25 05:17 200 MG Pantoprazole Sodium 40 mg DAILY@0600 PO 03/20/25 06:00 03/20/25 05:16 40 MG Albuterol 2.5 mg Q4HR NEB 03/20/25 10:00 03/20/25 11:09 2.5 MG Ipratropium [place] 0.5 mg Q4HR NEB 03/20/25 10:00 03/20/25 11:09 0.5 MG Laboratory Results Laboratory Tests 03/20/25 01:04 03/20/25 03:40 Chemistry Test 03/19/25 19:10 03/19/25 20:08 03/20/25 01:04 Calcium Level 9.4 mg/dL (8.7-10.4) 9.6 mg/dL (8.7-10.4) Albumin 4.7 g/dL (3.2-4.8) 4.8 g/dL (3.2-4.8) Total Protein 7.2 g/dL (5.7-8.2) 7.7 g/dL (5.7-8.2) Cardiac Markers Test 03/19/25 19:10 B-Type Natriuretic Peptide 534.58 pg/mL (0-100) LFT Test 03/19/25 20:08 03/20/25 01:04 Alanine Aminotransferase (ALT) 3589 U/L (7-40) H 4675 U/L (7-40) H Alkaline Phosphatase 183 U/L (46-116) H 193 U/L (46-116) H Aspartate Amino Transferase (AST) > 6000 U/L (13-40) H U/L (13-40) Direct Bilirubin 2.1 mg/dL (<0.3) H Total Bilirubin 5.5 mg/dL (0.2-1.0) H 5.1 mg/dL (0.2-1.0) H Assessment/Plan Assessment/Plan Acute hypoxic respiratory failure Acute on chronic CHF with reduced EF Drug induced cardiomyopathy Polysubstance abuse Transaminitis PLAN: GDMT treatment Entresto B-Blockers O2 prn Med Nebs prn Cardiology consult GI consult Monitor closely Plan discussed with: Patient My Orders Orders - SHONA DOMINGUEZ MD Procedure Category Date Status Time Complete Blood Count LAB 03/21/25 Verified 04:00 Comprehensive LAB 03/21/25 Verified Metabolic Panel 04:00 Magnesium LAB 03/21/25 Verified 04:00 Date of Service: Mar 20, 2025 Billing Provider: SHONA DOMINGUEZ MD Common Visit Codes: NOT BILLABLE SHONA DOMINGUEZ MD Mar 20, 2025 14:28
[2025-03-21] VITALS (8 sets, daily range): BP systolic 109–116; BP diastolic 63–81; PULSE 78–99; RESP 14–20; TEMP 97.8–98.2; O2SAT 94–99
[2025-03-21 06:28] LABS: Nucleated Red Blood Cells % 0.1 %
[2025-03-21 06:31] LABS: Hematocrit 40.5 % (41.0-53.0); Hemoglobin 13.0 g/dL (13.5-17.5); Mean Corpuscular Hemoglobin 24.7 pg (28.0-32.0); Mean Corpuscular Volume 77.1 fL (80.0-100.0)
[2025-03-21 06:44] LABS: Albumin 3.8 g/dL (3.2-4.8); Anion Gap 11 (5-15); BUN/Creatinine Ratio 21.8 (10.0-20.0); Calcium 8.9 mg/dL (8.7-10.4); Carbon Dioxide 28 mmol/L (20-31); Chloride 102 mmol/L (98-107); Glucose 88 mg/dL (74-106); Magnesium 2.0 mg/dL (1.6-2.6); Potassium 3.7 mmol/L (3.5-5.1); Sodium 141 mmol/L (136-145); Total Protein 6.2 g/dL (5.7-8.2)
[2025-03-21 06:58] LABS: Alanine Aminotransferase 2845 U/L (7-40); Alkaline Phosphatase 155 U/L (46-116); Bilirubin, Total 2.6 mg/dL (0.2-1.0); Blood Urea Nitrogen 24 mg/dL (9-23)
[2025-03-21] MEDS ORDERED: CARV3.1240 PO (09:26)
[2025-03-21] MEDS ORDERED: QUET200T30 PO (09:26)
[2025-03-21] MEDS ORDERED: SACU1TAB PO (09:26)
[2025-03-21] MEDS ORDERED: ATOR20TA PO (09:26)
[2025-03-21] MEDS ORDERED: EMPA1TAB PO (09:26)
[2025-03-21] MEDS ORDERED: LEVO112T4 PO (09:26)
[2025-03-21] MEDS ORDERED: FURO40TA4 PO (09:26)
[2025-03-21] MEDS ORDERED: ASPI-628 PO (09:26)
--- NOTE | 2025-03-21 09:31 | DVHDS2 ---
Discharge Summary Date of Admission Mar 19, 2025 at 22:43 Date of Discharge: Mar 21, 2025 Labs/Diagnostic Data: Laboratory Results Test 03/21/25 05:17 03/20/25 07:00 03/20/25 00:02 03/19/25 22:03 White Blood Count 8.4 10^3/uL (4.4-10.8) Red Blood Count 5.26 10^6/uL (4.5-5.90) Hemoglobin 13.0 g/dL (13.5-17.5) Hematocrit 40.5 % (41.0-53.0) Mean Corpuscular Volume 77.1 fL (80.0-100.0) Mean Corpuscular Hemoglobin 24.7 pg (28.0-32.0) Mean Corpuscular Hemoglobin Concent 32.1 g/dL (32.0-36.0) Red Cell Distribution Width 20.1 % (11.8-14.3) Platelet Count 227 10^3/uL (140-450) Mean Platelet Volume 8.7 fL (6.9-10.8) Neutrophils (%) (Auto) 80.1 % (37.0-80.0) Lymphocytes (%) (Auto) 8.8 % (10.0-50.0) Monocytes (%) (Auto) 9.6 % (0.0-12.0) Eosinophils (%) (Auto) 1.1 % (0.0-7.0) Basophils (%) (Auto) 0.4 % (0.0-2.0) Neutrophils # (Auto) 6.7 10 ^3/uL (1.6-8.6) Lymphocytes # (Auto) 0.7 10 ^3/uL (0.4-5.4) Monocytes # (Auto) 0.8 10 ^3/uL (0-1.3) Eosinophils # (Auto) 0.1 10 ^3/uL (0-0.8) Basophils # (Auto) 0 10 ^3/uL (0-0.2) Nucleated Red Blood Cells 0.1 % Sodium Level 141 mmol/L (136-145) Potassium Level 3.7 mmol/L (3.5-5.1) Chloride Level 102 mmol/L (98-107) Carbon Dioxide Level 28 mmol/L (20-31) Anion Gap 11 (5-15) Blood Urea Nitrogen 24 mg/dL (9-23) Creatinine 1.10 mg/dL (0.700-1.30) Glomerular Filtration Rate Calc 85 mL/min (>90) BUN/Creatinine Ratio 21.8 (10.0-20.0) Serum Glucose 88 mg/dL (74-106) Calcium Level 8.9 mg/dL (8.7-10.4) Magnesium Level 2.0 mg/dL (1.6-2.6) Total Bilirubin 2.6 mg/dL (0.2-1.0) Aspartate Amino Transferase (AST) 2578 U/L (13-40) Alanine Aminotransferase (ALT) 2845 U/L (7-40) Alkaline Phosphatase 155 U/L (46-116) Total Protein 6.2 g/dL (5.7-8.2) Albumin 3.8 g/dL (3.2-4.8) Lactic Acid Level 3.8 mmol/L (0.4-2.0) Influenza Type A Antigen Negative (Negative) Influenza Type B Antigen Negative (Negative) SARS-CoV-2 Antigen (Rapid) Negative (NEGATIVE) Troponin I High Sensitivity 81 ng/L (</=54) Test 03/19/25 20:24 03/19/25 20:08 03/19/25 19:10 Urine Opiates Screen Neg (NEGATIVE) Urine Fentanyl Screen Neg (NEGATIVE) Urine Barbiturates Screen Neg (NEGATIVE) Urine Phencyclidine Screen Neg (NEGATIVE) Urine Amphetamines Screen Pos (NEGATIVE) Urine Benzodiazepines Screen Neg (NEGATIVE) Urine Cocaine Screen Neg (NEGATIVE) Urine Cannabinoids Screen Pos (NEGATIVE) Direct Bilirubin 2.1 mg/dL (<0.3) B-Type Natriuretic Peptide 534.58 pg/mL (0-100) Other Laboratory Tests 03/21/25 05:17 Brief Hx & Hospital Course: Final diagnoses: Acute hypoxic respiratory failure Acute on chronic CHF with reduced EF Drug induced cardiomyopathy Polysubstance abuse Transaminitis most likely alcoholic Alcohol use disorder 44-year-old male says he ran out of his medications about a week ago came with shortness of breaths He has a history of drug-induced cardiomyopathy with ejection fraction 10-15%, also he says he is still drinking alcohol came with shortness of breaths and on the labs he had extremely elevated liver function tests and bilirubin He was restarted on his medications He was started on Entresto and beta blockers and Lasix Overnight he is now on room air He is feeling better No edema in his legs He wants to go home He will need refills on his medications, we sent his refills to [facility] pharmacy so he can pick up attendant the medications when he goes home He says he is assigned to a new primary care physician who he will follow up with Follow up with his PCP as soon as possible Refill all his medications Stable for discharge Condition at Discharge: Stable Final Diagnosis/Problems List Acute hypoxic respiratory failure Acute on chronic CHF with reduced EF Drug induced cardiomyopathy Polysubstance abuse Transaminitis most likely alcoholic Alcohol use disorder Discharge Disposition: Home SNF Discharge Will this Physician continue t: No Discharge Instruct/Medications Diet: Cardiac 2g Na,low cholest Activity: No Restrictions, As Tolerated Follow Up/Referral: PCP as soon as possible Medications: Coreg Lasix Entresto Lipitor Aspirin Levothyroxine Jardiance Scheduled Aspirin (Aspirin Adult Low Dose), 81 MG PO DAILY Atorvastatin Calcium (Lipitor), 1 TAB PO DAILY Carvedilol (Carvedilol), 1 TAB PO BID Empagliflozin (Jardiance), 10 MG PO DAILY Furosemide (Furosemide), 1 TAB PO DAILY Levothyroxine Sodium (Levothyroxine Sodium), 1 TAB PO DAILY Quetiapine Fumerate (Seroquel), 1 TAB PO QPM, (Reported) Quetiapine Fumerate (Seroquel), 1 TAB PO QAM Sacubitril-Valsartan (Entresto 24-26 mg), 1 TAB PO BID Scheduled PRN Clonazepam (Clonazepam), 1 TAB PO HS PRN for ANXIETY, (Reported) Discharge Statement: "Patient was advised to return to the ER or call 911 if any headaches, dizziness, shortness of breath, chest pain, abdominal pain, bleeding, fevers, or worsening of medical condition. Patient was counseled about treatment plan, medications, possible side effects, patientverbalized understanding. All questions were answered to the best of my ability. This discharge took greater then 30 minutes in planning, reviewing documentation, counseling the patient, and discussing with other team members." ASSESSMENT ASSESSMENT Assessment Acute hypoxic respiratory failure Acute on chronic CHF with reduced EF Drug induced cardiomyopathy Polysubstance abuse Transaminitis most likely alcoholic Alcohol use disorder Date of Service: Mar 21, 2025 Billing Provider: SHONA DOMINGUEZ MD Common Visit Codes: NOT BILLABLE SHONA DOMINGUEZ MD Mar 21, 2025 09:31
--- NOTE | 2025-03-21 14:20 | ECG ---
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
== END 2025-03-21 11:01 | disposition home or self-care (01) | DRG 280 ==
LOC: ER 17:31 → OVERFLOW 22:43 → TELE-CENTR 03-20 20:53
PROVIDERS: ADMIT Internal Medicine Geriatric Medicine; ATTEND Internal Medicine Geriatric Medicine
DX: I11.0 Hypertensive heart disease with heart failure (principal); I50.23 Acute on chronic systolic (congestive) heart failure; I21.A1 Myocardial infarction type 2; J96.01 Acute respiratory failure with hypoxia; F10.10 Alcohol abuse, uncomplicated; J44.9 Chronic obstructive pulmonary disease, unspecified; E66.9 Obesity, unspecified; F31.9 Bipolar disorder, unspecified; F15.10 Other stimulant abuse, uncomplicated; Z59.00 Homelessness unspecified; T50.995A Adverse effect of other drugs, medicaments and biological substances, initial encounter; Z20.822 Contact with and (suspected) exposure to COVID-19; I42.7 Cardiomyopathy due to drug and external agent; F17.210 Nicotine dependence, cigarettes, uncomplicated; R74.01 Elevation of levels of liver transaminase levels; Z79.82 Long term (current) use of aspirin; Z79.84 Long term (current) use of oral hypoglycemic drugs; Y90.9 Presence of alcohol in blood, level not specified; Y92.89 Other specified places as the place of occurrence of the external cause; Z68.32 Body mass index [BMI] 32.0-32.9, adult
CPT/HCPCS: 36415; 71045; 71275; 80048; 80053; 80076; 80307; 83605; 83735; 83880; 84484; 85025; 87426; 87804; 93005; 94640; 96365; 99291; G0378